=== PATIENT | male | born 1950 | race Caucasian/White ===

== ENCOUNTER 2024-02-15 14:07 | Outpatient (AMB) | payer MEDICARE, OTHER, SELFPAY ==
[2024-02-15 14:21] VITALS: BP 124/68; PULSE 68; BMI 33.2
--- NOTE | 2024-02-15 14:21 | MHC.OFFVIS ---
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 It appears that he has had these episodes going back more than 10 years. In the past, he was thought to be having rather vertigo. He apparently underwent workup and some therapy and it got better. More recently again he feels some new symptoms. Sometimes when he is getting up from seated position, he may feel unsteady. Not clear if it is orthostatic type change. However, he also feels the same randomly even when not changing positions. Otherwise symptoms like seeing double vision. Even in the exam room, he is stating that some letters on the trash can extra appear to be double. Hence at least some of these symptoms do not really appear to be truly cardiac -especially as his vital signs are normal at this time when he is describing these. Otherwise, no clear-cut symptoms like chest pains, jaw pain or any form of anginal-type symptoms. No shortness of breath either. Otherwise, no documented cardiac history. [facility] Family History (Updated 02/15/24 @ 14:30 by Noemi Horta) Father Heart attack Social History (Updated 02/15/24 @ 14:31 by Noemi Horta) Alcohol intake: never Patient Tobacco Use Status: Never used Tobacco Review of Systems Const Denies weakness Eyes Reports blurry vision ENT Reports dizziness Card Denies chest pain, Denies chest pain with activity, Denies syncope, Denies rapid heart rate, Denies pedal edema, Denies edema, Denies leg edema, Denies lightheadedness, Denies palpitations, Denies dyspnea, Denies dyspnea on exertion and Denies orthopnea Resp Denies cough, Denies dyspnea and Denies dyspnea on exertion GI Denies hematochezia and Denies change in stool character Musc Denies abnormal gait, Denies muscle cramps, Denies muscle weakness, Denies numbness, Denies radiating pain into limb and Denies tingling Neuro Denies abnormal gait, Reports dizziness, Denies syncope, Denies numbness, Denies tingling and Denies weakness Endo Denies palpitations Physical Exam Vital Signs: Last Vital Signs Pulse 68 02/15/24 14:21 BP 124/68 02/15/24 14:21 BMI result Body Mass Index 33.2 Const General: comfortable and no acute distress Orientation/consciousness: patient oriented x3 HEENT Other: Unremarkable Head: Yes normal to inspection Neck Neck: Yes normal visual inspection Chest Chest palpation & inspection: normal inspection of the chest Resp Auscultation: clear to auscultation bilaterally Cardio Palpation: normal PMI Heart sounds: S1 normal heart sound present, S2 normal heart sound present, no gallops, no murmurs and no rubs GI Palpation (GI): Soft to palpation Back/Spine/Pelvis Other: unremarkable Skin General skin exam: no rashes or lesions noted Neuro General: patient oriented x3 Extrem General: Yes normal to inspection Psych Mental Status: mental status grossly normal Office Procedures EKG Details: EKG with underlying sinus rhythm at 68/Min; sinus arrhythmias; no significant ST-T changes and otherwise unremarkable[place] [id number], Complete Assessment & Plan Assessment & Plan (1) Dizziness: Code(s): R42 - Dizziness and giddiness Category: Medical Plan Atypical symptoms and doubt any clear-cut cardiac cause. Especially symptoms like seeing double appear to be noncardiac. We will get a comprehensive cardiac workup either way including echocardiogram, carotid ultrasound and tilt-table testing. Highly doubt arrhythmogenic causes as he is having normal sinus rhythm today in clinic and still describing the same symptoms. Based on findings, will plan further care. Orders: Orders CA echo transthoracic complete Today R42 - Dizziness and giddiness US carotid duplex BI Today I65.23 - Occlusion and stenosis of bilateral carotid arteries, R42 - Dizziness and giddiness ECG Tilt Table Test Today R42 - Dizziness and giddiness, R55 - Syncope and collapse Coding Level of Care Code New Pt Level 4 (99621) Diagnoses Dizziness R42 CPT Codes EKG - CPT: 85559-[id number], Complete ([id number])
== END 2024-02-15 15:32 | disposition home or self-care (01) ==
PROVIDERS: PCP Internal Medicine; Visit Provider Internal Medicine
DX: R42 Dizziness and giddiness (principal)
CPT/HCPCS: 93010; 99204

== ENCOUNTER → 2024-02-15 14:07 | Outpatient (BNVA) | payer MEDICARE, OTHER, SELFPAY | PROVIDERS: PCP Internal Medicine; Visit Provider Internal Medicine | DX: R42 Dizziness and giddiness (principal) | CPT/HCPCS: 93005; 99202 ==

== ENCOUNTER 2024-02-24 13:17 | Outpatient (REF) | payer MEDICARE, OTHER, SELFPAY ==
--- NOTE | ~2024-02-24 | US_ITS ---
EXAMINATION: US EXTRACRANIAL CAROTID DUPLEX, BILATERAL CLINICAL INFORMATION: Carotid stenosis COMPARISON: None available. TECHNIQUE: Real-time ultrasound and Doppler techniques (integrating B-mode 2-D vascular images, Doppler spectral analysis and color-flow Doppler imaging) were utilized to interrogate the extracranial carotid arteries, the vertebral arteries and proximal subclavian arteries bilaterally. The degree of stenosis is determined by criteria similar to NASCET. FINDINGS: Right Side: 1. There is mild atherosclerotic plaque seen in the bifurcation/proximal ICA region. 2. The common carotid artery PSV proximally is 84.5 cm/s and distally 78.1 cm/s. 3. The proximal internal carotid artery velocities are 58.3 cm/s systolic and 18.5 cm/s diastolic. 4. The proximal external carotid artery PSV is 134 cm/s. 5. The vertebral artery shows antegrade flow. 6. The subclavian artery waveforms are normal. Left Side: 1. There is mild atherosclerotic plaque seen in the bifurcation/proximal ICA region. 2. The common carotid artery PSV proximally is 124 cm/s and distally 86 cm/s. 3. The proximal internal carotid artery velocities are 83.1 cm/s systolic and 23.1 cm/s diastolic. 4. The proximal external carotid artery PSV is 137 cm/s. 5. The vertebral artery shows antegrade flow. 6. The subclavian artery waveforms are normal. US/US carotid duplex BI IMPRESSION: 1. RIGHT: Minimal, non-hemodynamically significant stenosis of the proximal right internal carotid artery corresponding to a 0-49% stenosis by velocity criteria. 2. LEFT: Minimal, non-hemodynamically significant stenosis of the proximal left internal carotid artery corresponding to a 0-49% stenosis by velocity criteria. Electronically signed by: Jarvis Ren MD 02/28/2024 04:22 PM EDT
== END 2024-02-24 13:18 | disposition home or self-care (01) ==
LOC: HO.US 13:17
PROVIDERS: PCP Internal Medicine; Visit Provider Internal Medicine
DX: I65.23 Occlusion and stenosis of bilateral carotid arteries (principal); R42 Dizziness and giddiness
CPT/HCPCS: 93880

== ENCOUNTER → 2024-03-16 12:59 | Outpatient (REF) | payer MEDICARE, OTHER, SELFPAY ==
--- NOTE | 2024-03-16 13:03 | CA_ITS ---
Transthoracic Echocardiogram Patient (Last, First, Middle): Deacon Arevalo, Gender: Male Date of : 1950 Age: 73 Procedure Date: 03/16/2024 Procedure Type: Transthoracic Echocardiogram Location: OP Height: 172.72 cm Weight: 99.79 kg BSA: 2.13 m2 Heart Rate: bpm BP: 122 / 72 mmHg Quill Machine Operator: TO Referring MD: Benjy Deal MD Symptoms: R42 - Dizziness and giddiness Study Quality: Fair/Contrast Conclusions: - 1. Normal LV ejection fraction 55-60% with impaired relaxation filling pattern 2. Mild aortic and mitral regurgitation 3. Mildly dilated ascending aorta at 3.8 cm 4. No gross pericardial effusion Findings Procedure Information Contrast agent, definity, is being given per protocol without apparent complications. Left Ventricle Normal left ventricular size, thickness, and systolic function. The visually estimated ejection fraction is between 55-60%. Spectral Doppler is indicative of an impaired relaxation filling pattern. Right Ventricle Normal right ventricular cavity size. There is normal right ventricular systolic function. Atria The left atrium is likely dilated. Interatrial shunt cannot be excluded. The right atrium is normal in size. Aortic Valve Normal aortic valve structure and function. There is no aortic valve stenosis. There is mild aortic valve regurgitation. Mitral Valve There is mild anterior and moderate posterior mitral leaflet thickening. There is moderate mitral annular calcification. There is mild mitral valve regurgitation. There is no mitral valve stenosis. Pulmonic Valve The pulmonic valve is likely normal. There is trace to mild pulmonic valve regurgitation. Tricuspid Valve Likely normal tricuspid valve structure and function. Tricuspid regurgitation envelope is inadequate for calculation of right ventricular systolic pressure. Normal right atrial pressure. Great Vessels All visible segments of the aorta are normal in size. The pulmonary artery was not well visualized. There is mild dilatation of the ascending aorta measuring 3.80 cm. Venous The inferior vena cava is normal in size and collapses greater than 50% with inspiration. Pericardium/Pleural There is no evidence of pericardial effusion. Prior Study Comparison No prior study available for comparison. Measurements 2D Linear Measurements IVSd: 1.10 0.6-0.9/0.6-1.0 cm LVIDd: 5.41 3.9-5.3/4.2-5.9 cm LVIDd Index: 2.54 2.4-3.2/2.2-3.1 cm/m2 LVIDs: 3.66 2.0-3.6 cm LVPWd: 0.93 0.7-1.1 cm LA Diam: 4.00 2.7-3.8/3.0-4.0 cm LAIDs Index: 1.88 1.5-2.3 cm/m2 LV Mass: 263.11 67-162/88-224 g LV Mass Index: 123.53 43-95/49-115 g/m2 LVOT Diam: 2.50 3.0+(-)1.3 cm 2D Systolic Function EF 4C: 56.50 >55% EF 2C: 49.80 >55% EF BiP: 53.90 >55% Mitral Valve MV Pk E: 0.47 MV PK A: 0.53 MV Decel Time: 211.00 E/A: 0.90 E'Lateral: 7.18 E'Medial: 5.22 E/E' Med: 9.00 E/E' Lat: 6.60 PHT: 62.00 MVA PHT: 3.55 Decel [place]: 2.23 Aortic Valve AoV Pk Michael: 1.25 AoV Mn Michael: 0.83 AoV VTI: 0.22 AoV Pk Grad: 6.00 Aov Mn Grad: 3.00 KATIE Cont.VTI: 3.77 LVOT LVOT Pk Michael: 0.82 LVOT Mn Michael: 0.57 LVOT VTI: 0.17 LVOT Pk Grad: 3.00 LVOT Mn Grad: 1.00 LVOT Diam: 2.50 LVOT Area: 4.91 Diastolic Function MV Pk E: 0.47 MV Pk A: 0.53 E/A: 0.90 E'Medial: 5.22 E/E' Med: 9.00 E' Laterial: 7.18 E/E' Lat: 6.60 Right Ventricle TAPSE (mm): 28.50 TVS' Michael: 15.70 Tricuspid Valve RA Press: 3.00 Great Vessels Aorta Sinus of Valsalva: 3.95 2.0-3.[address] Ridge: 2.95 1.7-3.4 cm Ao Asc: 3.80 2.1-3.4 cm Updated in Other Vendor System with Status of Final John Floyd MD electronically signed on 03/17/2024 12:12:18 PM with status of Final
== END ==
LOC: HO.CARD 12:59
PROVIDERS: PCP Internal Medicine; Visit Provider Internal Medicine
DX: R42 Dizziness and giddiness (principal)
CPT/HCPCS: 93306; Q9957

== ENCOUNTER → 2024-03-16 13:03 | Outpatient (BNV) | payer MEDICARE, OTHER, SELFPAY | PROVIDERS: PCP Internal Medicine; Visit Provider Internal Medicine Cardiovascular Disease | DX: I35.1 Nonrheumatic aortic (valve) insufficiency (principal); I34.1 Nonrheumatic mitral (valve) prolapse | CPT/HCPCS: 93306 ==

== ENCOUNTER 2024-05-10 13:21 | Outpatient (AMB) | payer MEDICARE, OTHER, SELFPAY ==
[2024-05-10 13:25] VITALS: BP 128/68; PULSE 100; BMI 34.2
--- NOTE | 2024-05-10 13:25 | MHC.OFFVIS ---
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 Recently seen in consultation regarding dizziness. He has had these episodes going back more than 10 years. In the past, thought to be rather having vertigo. He apparently underwent workup and some therapy and it got better. More recently again he feels some new symptoms. Sometimes when he is getting up from seated position, he may feel unsteady. Not clear if it is orthostatic type change. However, he also feels the same randomly even when not changing positions. Otherwise symptoms like seeing double vision. Even in the exam room, he is stating that some letters on the trash can extra appear to be double. Hence at least some of these symptoms do not really appear to be truly cardiac -especially as his vital signs are normal at this time when he is describing these. Otherwise, no clear-cut symptoms like chest pains, jaw pain or any form of anginal-type symptoms. No shortness of breath either. Otherwise, no documented cardiac history. Since last seen, he states that the visual symptoms per se have gotten much better but the other symptoms are still persisting. Overall, he could be describing some orthostasis type dizziness. Still not very clear as lot of these symptoms are vague. He has completed an echocardiogram, carotid Dopplers as well as tilt-table testing. PFSH Family History Father Heart attack Social History Alcohol intake: never Patient Tobacco Use Status: Never used Tobacco Review of Systems Const Denies chills, Denies fatigue, Denies fever(s), Denies weight gain and Denies weight loss ENT Denies dizziness Card Denies chest pain, Denies leg edema, Denies lightheadedness, Denies palpitations, Reports dyspnea on exertion, Denies orthopnea and Denies other Resp Denies cough and Reports dyspnea on exertion GI Denies hematochezia and Denies change in stool character Musc Denies abnormal gait, Denies muscle weakness, Denies numbness, Denies radiating pain into limb and Denies tingling Neuro Denies abnormal gait, Denies dizziness, Denies numbness and Denies tingling Endo Denies fatigue and Denies palpitations Physical Exam Vital Signs: Last Vital Signs Pulse 100 05/10/24 13:25 BP 128/68 05/10/24 13:25 BMI result Body Mass Index 34.2 Const General: comfortable and no acute distress Orientation/consciousness: patient oriented x3 HEENT Other: Unremarkable Head: Yes normal to inspection Neck Neck: Yes normal visual inspection Chest Chest palpation & inspection: normal inspection of the chest Resp Auscultation: clear to auscultation bilaterally Cardio Palpation: normal PMI Heart sounds: S1 normal heart sound present, S2 normal heart sound present, no gallops, no murmurs and no rubs GI Palpation (GI): Soft to palpation Back/Spine/Pelvis Other: unremarkable Skin General skin exam: no rashes or lesions noted Neuro General: patient oriented x3 Extrem General: Yes normal to inspection Psych Mental Status: mental status grossly normal Assessment & Plan Assessment & Plan (1) Dizziness: Code(s): R42 - Dizziness and giddiness Category: Medical (2) PVC (premature ventricular contraction): Code(s): I49.3 - Ventricular premature depolarization Category: Medical Plan Cardiac studies reviewed. Echocardiogram with LVEF of 55-60%. Mild aortic/mitral regurgitation. Ascending aortic size top normal at 3.8 cm. Carotid Doppler shows minimal stenosis bilaterally. During the tilt-table test, there was no significant drop in blood pressure or change in pulse rate with 70 degree tilt. With nitroglycerin however, there was a drop in blood pressure and he had similar symptoms as he felt at home. Then got IV fluids and improved. Hence recommendation was possible dehydration. During the tilt-table test, there were frequent multifocal PVCs and some bigeminy/couplets. However, no symptoms from that. Overall, possible dehydration/orthostasis causing symptoms but not definitive. Increase fluid intake as above. Otherwise, precautions while getting up from seated position. With regard to the PVCs noted during tilt-table, highly doubt that playing a role and most likely benign as he has got normal LVEF. We can get a Holter monitor to assess the overall burden. Of note, while he was in normal sinus rhythm during the last office visit, he was still having the same symptoms. Hence that is not playing a role in his dizziness. Orders: Orders ECG 3 day holter monitor Today I49.3 - Ventricular premature depolarization Coding Level of Care Code Est Pt Level 3 (12956) Diagnoses Dizziness R42 PVC (premature ventricular contraction) I49.3
== END 2024-05-10 13:45 | disposition home or self-care (01) ==
PROVIDERS: PCP Internal Medicine; Visit Provider Internal Medicine
DX: R42 Dizziness and giddiness (principal); I49.3 Ventricular premature depolarization
CPT/HCPCS: 99213

== ENCOUNTER → 2024-05-10 13:21 | Outpatient (BNVA) | payer MEDICARE, OTHER, SELFPAY | PROVIDERS: PCP Internal Medicine; Visit Provider Internal Medicine | DX: I49.3 Ventricular premature depolarization (principal); R42 Dizziness and giddiness | CPT/HCPCS: 99212 ==

== ENCOUNTER → 2024-05-29 10:11 | Outpatient (REF) | payer MEDICARE, OTHER, SELFPAY | LOC: HO.CARD 10:11 | PROVIDERS: PCP Internal Medicine; Visit Provider Internal Medicine | DX: I49.3 Ventricular premature depolarization (principal) | CPT/HCPCS: 93242 ==

== ENCOUNTER → 2024-05-29 10:14 | Outpatient (BNV) | payer MEDICARE, OTHER, SELFPAY | PROVIDERS: PCP Internal Medicine; Visit Provider Internal Medicine | DX: I47.10 Supraventricular tachycardia, unspecified (principal); I49.3 Ventricular premature depolarization | CPT/HCPCS: 93244 ==

== ENCOUNTER → 2024-12-11 11:31 | Outpatient (REF) | payer MEDICARE, OTHER, SELFPAY ==
--- NOTE | 2024-12-11 11:34 | HM_ITS ---
Conclusion: 1. Patient was monitored for total period of 3 days 2. Baseline was normal sinus rhythm with average heart of 79 beats per minute 3. Frequent PVCs noted with total burden of 9% with 1 3 beat run of nonsustained VT at 154 beats per minute 4. Frequent PACs noted with total burden of 8.3% with 5 short runs of SVT, longest lasting 9 beats at 192 beats per minute 5. Patient marked the counter 1 time with correlation with normal sinus rhythm MTDD
--- OUTSIDE RECORDS SUMMARY | 2024-12-11 12:25 | XMS_ITS | Clinical Summary ---
Author Organization [facility] it Address [address] [place] [address] Care Team Providers Care Group Segment Consultant Name Role Phone Josemanuel Way MD Primary Care Provider [phone] Social History Tobacco Use Types Packs/Day Years Used Date Smoking Tobacco: Never Assessed Sex and Gender Information Value Date Recorded Sex Assigned at Not on file Legal Sex Male 11:25 PM EST Gender Identity Not on file Sexual Orientation Not on file Last Filed Vital Signs Vital Sign Reading Time Taken Comments Blood Pressure 130/75 12/20/2023 2:02 PM EDT Pulse 88 12/20/2023 2:02 PM EDT Temperature - - Respiratory Rate - - Oxygen Saturation - - Inhaled Oxygen Concentration - - Weight 100 kg (221 lb) 12/20/2023 2:02 PM EDT Height 175.3 cm (5' 9 ) 12/20/2023 2:02 PM EDT Body Mass Index 32.64 12/20/2023 2:02 PM EDT Plan of Treatment Health Maintenance Due Date Last Done Comments DTaP,Tdap,and Td Vaccines (1 - Tdap) 1969 Pneumococcal Vaccine: 50+ Years (1 of 1 - PCV) 09/29/1999 Zoster Vaccines (1 of 2) 09/29/1999 Abdominal Aortic Aneurysm (AAA) Screen 12/12/2023 Cholesterol Screening (Lipid Panel) 12/12/2023 Colorectal Cancer Screening: Colonoscopy 12/12/2023 Depression Screening 12/12/2023 Falls Risk Assessment 12/12/2023 Hepatitis C Screening 12/12/2023 Medicare Annual Wellness Visit 12/12/2023 03/16/2022 Social Influencers of Health Screening 12/12/2023 COVID-19 Vaccine (25 season) 2024 RSV Immunization Adult Patients (1 - 1-dose 75+ series) 2024 Influenza Vaccine (Season Ended) 2025 05/13/2021, 02/20/2020, 02/14/2019, Additional history exists HIB Vaccines Aged Out No longer eligi ble based on patient's age to complete this topic HPV Vaccines Aged Out No longer eligi ble based on patient's age to complete this topic Hepatitis A Vaccines Aged Out No long er eligible based on patient's age to complete this topic Hepatitis B Vaccines Aged Out No long er eligible based on patient's age to complete this topic IPV Vaccines Aged Out No longer eligi ble based on patient's age to complete this topic MMR Vaccines Aged Out No longer eligi ble based on patient's age to complete this topic Meningococcal ACWY Vaccine Aged Out N o longer eligible based on patient's age to complete this topic Meningococcal B Vaccine Aged Out No l onger eligible based on patient's age to complete this topic RSV Immunization Patients Under 20 months Aged Out No longer eligible based on patient's age to complete this topic Varicella Vaccines Aged Out No longer eligible based on patient's age to complete this topic Care Teams Group Segment Consultant Relationship Specialty Start Date End Date Josemanuel Way MD PCP - General Internal Medicine 05/22/16
== END ==
LOC: HO.CARD 11:31
PROVIDERS: PCP Internal Medicine; Visit Provider Internal Medicine
DX: I49.3 Ventricular premature depolarization (principal)
CPT/HCPCS: 93242

== ENCOUNTER → 2024-12-11 11:34 | Outpatient (BNV) | payer MEDICARE, OTHER, SELFPAY | PROVIDERS: PCP Internal Medicine; Visit Provider Internal Medicine Cardiovascular Disease | DX: I49.3 Ventricular premature depolarization (principal); I49.1 Atrial premature depolarization; I47.10 Supraventricular tachycardia, unspecified | CPT/HCPCS: 93244 ==

== ENCOUNTER 2025-01-02 09:47 | Outpatient (AMB) | payer MEDICARE, OTHER, SELFPAY ==
[2025-01-02 10:06] VITALS: BP 128/78; PULSE 73; BMI 32.4
--- NOTE | 2025-01-02 10:06 | A.OFFVIS_ITS ---
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 Today he reports he has been feeling generally well. He does have issues with dizziness at times. He says the symptoms come and go and he has seen neurologist for this problem. He has no chest discomfort brought on by physical activity. He has no shortness of breath, PND, orthopnea or edema. No heart palpitations, presyncope, syncope, falls. Compliant with medications. [facility] Family History Father Heart attack Social History Alcohol intake: never Patient Tobacco Use Status: Never used Tobacco Review of Systems Const All systems reviewed & are unremarkable except as noted in HPI and below ENT Reports dizziness (with bending and turning head) Card Denies chest pain, Denies chest pain at rest, Denies chest pain with activity, Denies rapid heart rate, Denies pedal edema, Denies edema, Denies leg edema, Denies lightheadedness, Denies palpitations, Denies dyspnea, Denies dyspnea on exertion and Denies orthopnea Resp Denies cough, Denies dyspnea and Denies dyspnea on exertion GI Denies hematochezia and Denies change in stool character Musc Denies abnormal gait, Denies limited range of motion, Denies muscle cramps, Denies muscle weakness, Denies numbness, Denies radiating pain into limb, Denies stiffness and Denies tingling Neuro Denies abnormal gait, Reports dizziness (with bending and turning head), Denies numbness and Denies tingling Endo Denies palpitations Physical Exam Vital Signs: Last Vital Signs Pulse 73 01/02/25 10:06 BP 128/78 01/02/25 10:06 BMI result Body Mass Index 32.4 Const General: cooperative, healthy appearing, comfortable and no acute distress Orientation/consciousness: patient oriented x3 Neck Neck: Yes normal visual inspection Resp Effort & Inspection: normal respiratory effort Auscultation: clear to auscultation bilaterally, no crackles, no rales, no rhonchi and no wheezes Cardio Rate: regular rate Rhythm: regular rhythm Heart sounds: S1 normal heart sound present, S2 normal heart sound present, no gallops, no murmurs and no rubs Neuro General: patient oriented x3 Extrem General: Yes normal to inspection and No no pedal edema Psych Appearance: grossly normal Mental Status: mental status grossly normal Speech and movement: Normal speech and movement present Assessment & Plan Assessment & Plan (1) Frequent PVCs: Code(s): I49.3 - Ventricular premature depolarization Category: Medical Plan: For his symptom of dizziness he underwent a Holter monitor 05/29/2024 which did show sinus rhythm with frequent ventricular ectopy, 4%. This finding does not contribute to his symptom. An echocardiogram done 03/16/2024 showed EF 55-60%, mild aortic regurgitation and mild mitral regurgitation. A repeat Holter monitor done 12/11/2024 shows sinus rhythm with average heart rate 79 beats per minute, ventricular ectopy 9%, supraventricular ectopy 8.3%. He denies any hear t palpitations. Pulse regular on examination. Findings of frequent ectopy reviewed with him. Will check exercise nuclear stress test to evaluate for any ischemia. Discussed reduction in caffeinated beverages. He has no concern for sleep apnea. Will start on metoprolol XL 25 mg daily. Cardiology follow-up 3 months, sooner if needed. (2) PAC (premature atrial contraction): Code(s): I49.1 - Atrial premature depolarization Category: Medical Plan: As above (3) Dizziness: Code(s): R42 - Dizziness and giddiness Category: Medical Plan: Reports of dizziness. Has seen Neurology and was told he has vertigo. Plan Time spent on chart review, documentation, interview and assessment Orders: Orders CA stress test Today I49.1 - Atrial premature depolarization, I49.3 - Ventricular premature depolarization, R42 - Dizziness and giddiness NM cardiolite stress test Today I49.1 - Atrial premature depolarization, I49.3 - Ventricular premature depolarization, R42 - Dizziness and giddiness Medications: New metoprolol succinate ER 25 mg PO DAILY 30 tabs 5RF Coding Level of Care Code Est Pt Level 4 (95259) Complex EM visit Add On G2211 Diagnoses Frequent PVCs I49.3 PAC (premature atrial contraction) I49.1 Dizziness R42 Time Spent (min) 32
--- OUTSIDE RECORDS SUMMARY | 2025-01-02 10:33 | XMS_ITS ---
Author Name [facility] Organization Unknown Encounters Encounter Type Encounter Reason Primary Diagnosis Location Date Ambulatory [facility] 04/11/2024 Care Team Organization Name Specialty Phone Email Start Date End Da te [facility] 2024
--- OUTSIDE RECORDS SUMMARY | 2025-01-02 10:33 | XMS_ITS | Clinical Summary ---
Author Organization [facility] it Address [address] [place] [address] Care Team Providers Care Fruit Shipper Name Role Phone Josemanuel Way MD Primary Care Provider [phone] Social History Tobacco Use Types Packs/Day Years [...] Panel) 12/12/2023 Colorectal Cancer Screening: Colonoscopy 12/12/2023 Falls Risk Assessment 12/12/2023 Hepatitis C Screening 12/12/2023 Medicare Annual Wellness Visit 12/12/2023 03/16/2022 Social Influencers of Health Screening 12/12/2023 COVID-19 Vaccine (2023-25 season) 2024 Depression Screening 06/14/2024 RSV Immunization Adult Patients (1 - 1-dose 75+ series) 2024 Influenza Vaccine (#1) 2025 1, 02/20/2020, 02/14/2019, Additional history exists HIB Vaccines [...] age to complete this topic Care Teams Fruit Shipper Relationship Specialty Start Date End Date Josemanuel Way MD PCP - General Internal Medicine 05/22/16
--- OUTSIDE RECORDS SUMMARY | 2025-01-02 10:33 | XMS_ITS | Patient Health Record ---
Author Organization [facility] [address] Address [address] [place] [address] Care Team Providers Care Global Human Resources Director Name Role Phone KATRIN WAY Primary Care Provider [phone] DANIEL TREVINO Unavailable [phone] ZANDRA SLOANE Unavailable [phone] Allergies No Known Allergies Results Component Value Reference Range Notes Comp. Metabolic Panel (14)-3 Reviewed date:10/18/2024 10:08:37 AM Interpretation: Performing Lab:Rudder Sinan, [facility], Phone - [phone], Director - [place] Notes/Report: Glucose 115 70-99 mg/dL BUN 12 8-27 mg/dL Creatinine 0.74 0.76-1.27 mg/dL eGFR 94 >59 mL/min/1.73 BUN/Creatinine Ratio 16 10-24 Sodium 144 134-144 mmol/L Potassium 4.7 3.5-5.2 mmol/L Chloride 105 96-106 mmol/L Carbon Dioxide, Total 18 20-29 mmol/L Calcium 9.4 8.6-10.2 mg/dL Protein, Total 6.6 6.0-8.5 g/dL Albumin 4.4 3.8-4.8 g/dL Globulin, Total 2.2 1.5-4.5 g/dL Bilirubin, Total 0.6 0.0-1.2 mg/dL Alkaline Phosphatase 71 44-121 IU/L AST (SGOT) 25 0-40 IU/L ALT (SGPT) 18 0-44 IU/L Lipid Panel-[id number] Reviewed date:10/18/2024 10:05:27 AM Interpretation: Performing Lab:Rudder Sinan, [facility], Phone - [phone], Director - [place] Notes/Report: Cholesterol, Total 209 100-199 mg/dL Triglycerides 239 0-149 mg/dL HDL Cholesterol 45 >39 mg/dL VLDL Cholesterol Yusef 42 5-40 mg/dL LDL Chol Calc ([facility]) 122 0-99 mg/dL CBC With Differential/Platel et-[id number] Reviewed date:10/18/2024 02:08:32 PM Interpretation: Performing Lab:[facility] [place], [address] [facility], [place], Phone - [phone], Director - [place] Notes/Report: WBC 5.9 3.4-10.8 x10E3/uL RBC 4.90 4.14-5.80 x10E6/uL Hemoglobin 15.4 13.0-17.7 g/dL Hematocrit 45.7 37.5-51.0 % MCV 93 79-97 fL MCH 31.4 26.6-33.0 pg MCHC 33.7 31.5-35.7 g/dL RDW 13.1 11.6-15.4 % Platelets 292 150-450 x10E3/uL Neutrophils 68 Not Estab. % Lymphs 25 Not Estab. % Monocytes 5 Not Estab. % Eos 1 Not Estab. % Basos 1 Not Estab. % Neutrophils (Absolute) 4.0 1.4-7.0 x10E3/uL Lymphs (Absolute) 1.5 0.7-3.1 x10E3/uL Monocytes(Absolute) 0.3 0.1-0.9 x10E3/uL Eos (Absolute) 0.1 0.0-0.4 x10E3/uL Baso (Absolute) 0.1 0.0-0.2 x10E3/uL Immature Granulocytes 0 Not Estab. % Immature Grans (Abs) 0.0 0.0-0.1 x10E3/uL Reason For Referral Reason Near syncope with Dr Elodia Wallis Diagnosis 1 Near syncope (R55) Referral Organization [facility] [address] Referring Provider First Name KATRIN Referring Provider Last Name CRYSTAL Referring Provider Speciality Internal M edicine Referred Provider Specialty Cardiology General Notes [facility], [address] [facility], [address], P [phone], , F Clinical Notes Maranda Byrd 2023 02:51:57 PM >Referral info including notes, labs, and EKG sent to [place] [facility]. Paper copy mailed to pt for record and FU. TY.Andreas Redena 02/02/2024 09:51:49 AM > I called the office, and they informed me that they called the patient yesterday but have not received a callback. They will attempt to reach him again Referral Priority Routine Reason [facility] - Dr. Kaushik Mayorga Diagnosis 1 Near syncope (R55) Referral Organization [facility] [address] Referring Provider First Name KATRIN Referring Provider Last Name CRYSTAL Referring Provider Speciality Internal M edicine Referred Provider Specialty Cardiology Clinical Notes Chloe Julian 024 09:41:52 AM > referral sent with clinicals to (F) [phone] (P) [phone], Shanna Johns 03/03/2024 08:42:54 AM > The patient was seen on 02/15/2024 Referral Priority Routine Medications Medication SIG (Take, Route, Frequency, Duration) Notes Start Date End Date Status Rosuvastatin Calcium 20 MG TAKE 1 TABLET BY MOUTH EVERY DAY; Duration: 90 Active Sertraline HCl 50 MG TAKE 1 TABLET BY MO UTH EVERY DAY; Duration: 90 Active Pantoprazole Sodium 40 MG TAKE 1 TABLET BY MOUTH EVERY DAY; Duration: 90 Active Zetia 10 MG 1 tablet Orally Once a day; Duration: 30 days 10/24/2024 Active Multi For Him - Orally Acti ve Immunizations Vaccine Route Administration Date Status Comme nts Flu vaccine no Preserv 3 and > IM Intramuscular 04/06/2018 Administered Flu vaccine no Preserv 3 and > IM Intramuscular 03/22/2024 Administered influenza IM Intramuscular 05/13/2021 Administered Influenza, high dose seasonal IM Intramuscular 02/14/[address] [facility] [address] Social History Tobacco Use: Social History Observation Description Date Details (start date - stop date) Never Smoker NA - NA Tobacco Use/Smoking Question Answer Notes Are you a nonsmoker Problems Problem Type SNOMED Code ICD Code Onset Dates Problem Status W/U Status Risk Notes Problem Obesity (928373785) Other obesit y (E66.8) Active confirmed Problem Mixed hyperlipidemia (558685792) Mixed hyperlipidemia (E78.2) Active confirmed Problem Hyperlipidemia (90918598) Hyperlipidemia, unspecified (E78.5) Active confirmed Problem Essential hypertension (71220449) Essential (primary) hypertension (I10) Active confirmed Problem Gastro-esophageal reflux disease with esophagitis (300186690) Gastro-esophageal reflux disease with esophagitis (K21.0) Active confirmed Problem Impaired fasting glucose (871768785) Impaired fasting glucose (R73.01) Active confirmed Problem Nonvenomous insect bite of trunk without infection (25805951) Insect bite (nonvenomous) of abdominal wall, initial encounter (S30.861A) Active confirmed Problem Body mass index 30.00 to 34.99 (765732650902400) Body mass index (BMI) 31.0-31.9, adult (Z68.31) Active confirmed Problem Essential hypertension (43532056) Essential hypertension (I10) Active confirmed Problem Colon cancer screening (676003185) Colon cancer screening (Z12.11) Active confirmed Problem Pain of left knee region (finding) (673819290765095) Left knee pain, unspecified chronicity (M25.562) Active confirmed Problem Hyperlipidaemia (24432567) Hyperlipidemia, unspecified hyperlipidemia type (E78.5) Active confirmed Problem Anxiety (57704431) Anxiety (F41.9) Active confi rmed Problem Adult health examination (832982783) Adult general medical exam (Z00.00) Active confirmed Problem Dizziness (693727881) Dizziness (R42) Active confirmed Problem Fatigue (80902372) Fatigue, unspecified type (R53.83) Active confirmed Problem Rash (452701650) Rash (R21) Active confirmed Problem Annual health maintenance examination (62521371) Annual physical exam (Z00.00) Active confirmed Problem Gastroesophageal reflux disease without esophagitis (853009506) Gastroesophageal reflux disease without esophagitis (K21.9) Active confirmed Problem Obesity (907561945) Obesity (BMI 30-39.9) (E66.9) Active confirmed Problem Gastroesophageal reflux disease with esophagitis (disorder) (355232402) Gastroesophageal reflux disease with esophagitis, unspecified whether hemorrhage (K21.00) Active confirmed Problem Tick bite, unspecified site, initial encounter (W57.XXXA) Active confirmed Problem Frequent headache (finding) (016768281) Frequent headaches (R51.9) Active confirmed Problem Double vision (68920169) Double vision (H53.2) Active confirmed Problem Gastroesophageal reflux disease (098152919) GERD (gastroesophageal reflux disease) (K21.9) Active confirmed Problem Hyperlipidemia (51985346) Hyperlipidemia (E78.5) Active confirmed Vital Signs Heart Rate 74 /min 10/24/2024 Oximetry 99 % 10/24/2024 Blood pressure diastolic 76 mm Hg 10/24/2024 Height 68 in 10/24/2024 Blood pressure systolic 122 mm Hg 10/24/2024 Weight 222 lbs 10/24/2024 BMI 33.75 kg/m2 10/24/2024 Encounters Encounter Location Date Provider Diagnosis [facility] [address] [place] [address] 03/31/[address] Impacted cerumen of both ears H61.23 [facility] [address] [address] 04/27/2024 SLOANE DE PAZ [facility] [address] [address] 02/08/[address] Hyperlipidemia, unspecified E78.5 ; Dizziness R42 ; Anxiety F41.9 and Double vision H53.[address] [facility] [address] [place] [address] 03/22/[address] Essential hypertensi on I10 ; Anxiety F41.9 ; GERD (gastroesophageal reflux disease) K21.9 ; Hyperlipidemia E78.5 ; Encounter for immunization Z23 ; Dizziness R42 and Cerumen debris on tympanic membrane of both ears H61.23 [facility] [address] [address] 04/13/2024 SLOANE DE PAZ Labile hypertension R09.89 ; Hyperlipidemia E78.5 ; GERD (gastroesophageal reflux disease) K21.9 ; Obesity (BMI 30-39.9) E66.9 and Anxiety F41.[address] [facility] [address] [place] [address] 05/03/2024 DANIEL TREVINO SARS-CoV-2 positive U07.[address] [facility] [address] [place] [address] 06/26/[address] Annual physical exam Z00.00 ; Hyperlipidemia, unspecified hyperlipidemia type E78.5 and Essential (primary) hypertension I10 [facility] [address] [place] [address] 10/24/2024 DANIEL TREVINO Mixed hyperlipidemia E78.2 ; Grief reaction F43.20 ; Gastroesophageal reflux disease without esophagitis K21.9 ; Elevated glucose R73.09 ; Obesity (BMI 30-39.9) E66.9 ; Essential hypertension I10 ; Dizziness R42 and Encounter for examination of blood pressure without abnormal findings Z01.30 [facility] [address] [place] [address] 01/03/2024 TALFERNANDA PANDEYAN [facility] [address] [place] [address] 01/26/[address] [facility] [address] [place] [address] 04/12/[address] [facility] [address] [place] [address] 05/03/[address] [facility] [address] [place] [address] 05/03/2024 SLOANE BIRKS [facility] [address] [place] [address] 05/15/2024 SLOANE BIRKS [facility] [address] [place] [address] 06/08/2024 SLOANE BIRKS [facility] [address] [place] [address] 12/19/2024 DANIEL TREVINO Assessments Encounter Date Diagnosis (ICD Code) Assessment Notes Treatment Notes Treatment Clinical Notes Section Notes 02/08/2024 Hyperlipidemia, unspecified (ICD-10 - E78.5) #Dizziness: DDx at this time includes valvular dysfunction, CHF, cardiac arrhythmias, anxiety and MS. Referral to [facility] is being made in attempt to have an echocardiogram performed as soon as possible to evaluate cardiac causes. He denies any feelings of anxiety since starting Sertraline. He states he feels calm, has been sleeping throughout the entire night and denies palpitations. MRI obtained did not find any evidence of MS. #Anxiety: Continue Sertraline HCl 50mg daily #Hyperilipidemia: Continue Rosuvastatin 20mg daily #GERD: Continue Pantoprazole 40mg daily. Avoid spicy or hot foods, maintain upright position after eating. 03/22/2024 Essential hypertension (ICD-10 - I10) #HLD Taking rosuvastatin with no issues. Continue current regimen. #GERD Taking pantoprazole with no issues. Continue current regimen. #Anxiety Taking sertraline with no issues. Continue current regimen. #HTN Patients BP has been elevated in previous visits as well as today at 152/86. Discussed with patient the potential of placing him on a low-dose antihypertensive. Patient educated on monitoring BP at home with RPM. #Dizziness All work-up has been negative so far. Discovered bilateral cerumen impaction today, which could be causing symptoms. Patient educated on use of OTC wax remover drops to soften cerumen and prepare for ear irrigation next week. Patient received flu shot today in office. Patient is set to follow-up for ear irrigation next week, and in 3 months for a MWV. 02/08/2024 Dizziness (ICD-10 - R42) #Dizziness: DDx at this time includes valvular dysfunction, CHF, cardiac arrhythmias, anxiety and MS. Referral to [facility] is being made in attempt to have an echocardiogram performed as soon as possible to evaluate cardiac causes. He denies any feelings of anxiety since starting Sertraline. He states he feels calm, has been sleeping throughout the entire night and denies palpitations. MRI obtained did not find any evidence of MS. #Anxiety: Continue Sertraline HCl 50mg daily #Hyperilipidemia: Continue Rosuvastatin 20mg daily #GERD: Continue Pantoprazole 40mg daily. Avoid spicy or hot foods, maintain upright position after eating. 03/31/2024 Impacted cerumen of both ears (ICD-10 - H61.23) 04/13/2024 Labile hypertension (ICD-10 - R09.89) Ashley is a 73-year-old male history of hyperlipidemia, GERD, and depression who presents the office today for urgent visit for high blood pressure. He reports labile blood pressures over the past several weeks with readings as high as 169/95 and as low as 125/77 recorded on Qardio device. He admits to increased stress in his life at this time as his Nicole is on hospice care and he is managing her care along with home nursing services. Reports he has never had blood pressure before. He is without shortness of breath, chest pain, dyspnea exertion, abdominal pain, nausea, vomiting, diarrhea, or weakness. Of note recently seen by [facility] on 02/15/2024 for symptoms of dizziness and unsteadiness at which time noncardiac etiology of symptoms were determined. Carotid ultrasound performed which showed right and left minimal nonhemodynamically significant stenosis of the proximal right and left internal carotid artery corresponding to 0 to 49% stenosis by velocity criteria. Patient states also underwent tilt table testing and echocardiogram, have requested reports. On physical exam today patient is well-appearing in no acute distress. Vital signs are stable with blood pressure 128/80 and repeated blood pressure at the end of visit 122/82. Heart rate 92, oxygen saturation 92% on room air. Regular rate and rhythm appreciated without murmurs, rubs, or gallops. 2+ and equal radial pulses appreciated bilaterally. Lungs are clear to auscultation bilaterally without stridor, wheezing, rhonchi, or rales. At this time given clinical presentation patient most likely has labile high blood pressure most likely secondary to increased stress. Educated to continue to use blood pressure monitoring device regularly at home. Educated to rest his arm on a flat surface while his arm at heart level while monitoring blood pressure and to have legs uncrossed during reading. Also discussed the importance of continuing to lean on support systems during this time of increased stress including his vmifqd-hv-ora who is staying at the house to help with care and his son. He reports several family members and friends would come by the house to bring meals and assisting care. Advised to continue to monitor for symptoms consistent with red flag signs of hypertension including but not limited to chest pain, shortness of breath, dyspnea exertion, diaphoresis, palpitations, abdominal pain, vomiting, or weakness. Educated that he develops any of the symptoms to go to the emergency department. Patient will follow-up via telehealth visit in 2 weeks on 04/27/2024 to reevaluate blood pressure and symptoms. Patient is understanding and agrees with plan. All patient questions answered at this time. # Anxiety: Patient reports mood is okay [...] He demonstrates understanding. Will continue to monitor. All questions have been answered to patient's satisfaction. Patient verbalized understanding of diagnosis and treatments explained. Advised to call sooner prior to next visit it any questions/concerns arise. Case discussed with collaborating physician Dg Way who reviewed the assessment and plan. Chart, medications, labs, vital signs reviewed. Dictation was accomplished with the use of [employer] voice recognition software, which is prone to medical misidentifications and grammatical errors. This are unintentional and the practitioner does try to identify and correct these, but some could still be present. Please do not hesitate to contact practitioner for clarification. 04/13/2024 Hyperlipidemia (ICD-10 - E78.5) Ashley is a 73-year-old male history of hyperlipidemia, GERD, and depression who presents the office today for urgent visit for high blood pressure. He reports labile blood pressures over the past several weeks with readings as high as 169/95 and as low as 125/77 recorded on Qardio device. He admits to increased stress in his life at this time as his Nicole is on hospice care and he is managing her care along with home nursing services. Reports he has never had blood pressure before. He is without shortness of breath, chest pain, dyspnea exertion, abdominal pain, nausea, vomiting, diarrhea, or weakness. Of note recently seen by [facility] on 02/15/2024 for symptoms of dizziness and unsteadiness at which time noncardiac etiology of symptoms were determined. Carotid ultrasound performed which showed right and left minimal nonhemodynamically significant stenosis of the proximal right and left internal carotid artery corresponding to 0 to 49% stenosis by velocity criteria. Patient states also underwent tilt table testing and echocardiogram, have requested reports. On physical exam today patient is well-appearing in no acute distress. Vital signs are stable with blood pressure 128/80 and repeated blood pressure at the end of visit 122/82. Heart rate 92, oxygen saturation 92% on room air. Regular rate and rhythm appreciated without murmurs, rubs, or gallops. 2+ and equal radial pulses appreciated bilaterally. Lungs are clear to auscultation bilaterally without stridor, wheezing, rhonchi, or rales. At this time given clinical presentation patient most likely has labile high blood pressure most likely secondary to increased stress. Educated to continue to use blood pressure monitoring device regularly at home. Educated to rest his arm on a flat surface while his arm at heart level while monitoring blood pressure and to have legs uncrossed during reading. Also discussed the importance of continuing to lean on support systems during this time of increased stress including his duevxt-ru-ewt who is staying at the house to help with care and his son. He reports several family members and friends would come by the house to bring meals and assisting care. Advised to continue to monitor for symptoms consistent with red flag signs of hypertension including but not limited to chest pain, shortness of breath, dyspnea exertion, diaphoresis, palpitations, abdominal pain, vomiting, or weakness. Educated that he develops any of the symptoms to go to the emergency department. Patient will follow-up via telehealth visit in 2 weeks on 04/27/2024 to reevaluate blood pressure and symptoms. Patient is understanding and agrees with plan. All patient questions answered at this time. # Anxiety: Patient reports mood is okay [...] He demonstrates understanding. Will continue to monitor. All questions have been answered to patient's satisfaction. Patient verbalized understanding of diagnosis and treatments explained. Advised to call sooner prior to next visit it any questions/concerns arise. Case discussed with collaborating physician Dg Way who reviewed the assessment and plan. Chart, medications, labs, vital signs reviewed. Dictation was accomplished with the use of [employer] voice recognition software, which is prone to medical misidentifications and grammatical errors. This are unintentional and the practitioner does try to identify and correct these, but some could still be present. Please do not hesitate to contact practitioner for clarification. 05/03/2024 SARS-CoV-2 positive (ICD-10 - U07.1) Ashley is a 73-year-old male present via telehealth for urgent visit. #COVID-positive: Symptoms began overnight. Developed rhinorrhea, sore throat, sneezing and a dry cough. Denies fever, chills, body aches, shortness of breath or trouble breathing. Has tried mopd-poc-pbhtguk NyQuil which has improved symptoms slightly. Patient reports adequate appetite and hydrating well. Patient reports known sick contacts in family. Patient able to isolate at home for the next few days. Discussed that he does not need to retest and can stop isolation once symptoms improve. Plan to send Paxlovid to the pharmacy with instructions to take twice daily for 5 days. Also plan to send benzonatate 200 mg to be taken up to 3 times as needed for cough. Recommended supportive care including rest, hydration, well-balanced diet in addition to using Tylenol NyQuil as needed. Discussed side effects including GI upset. All questions answered. Discussed emergency protocol. Discussed calling the office if symptoms worsen or do not improve. Will consider chest xray if needed. Patient is seen today via telehealth agreement, with consent of patient. I used the following telehealth technology (telephone/[employer]/ skype) during this visit This encounter is appropriate and reasonable under the circumstances given the patient's particular presentation. The patient has been advised of the potential risks and limitations of this mode of treatment Including but not limited to the absence of in person physical examination,and has agreed to be treated in a remote fashion in spite of this. Any and all patient questions have been answered. The patient also has been advised to contact this office for worsening conditions or problems and seek medical treatment and/or call 911 if the patient deems either necessary All questions answered to patients satisfaction. Patient verbalized understanding of diagnosis and treatments explained. To call sooner prior to next visit it any questions/concerns arise. Case discussed with collaborating physician Dr. Way who reviewed the assessment and plan. Chart, medications, labs, vital signs reviewed. Dictation was accomplished with the use of [employer] voice recognition software, prone to medical misidentifications and grammatical errors. This is unintentional and the practitioner does try to identify and correct these, but some could still be present. Please do not hesitate to contact practitioner for clarification. 06/26/2024 Annual physical exam (ICD-10 - Z00.00) Patient seen and examined. Comprehensive discussion was done on the following. 1. Nutrition: It is important to follow a healthy diet based on lots of vegetables and legumes and good fat. Avoid processed food and processed carbohydrates. Learn to prepare your own meals. Learn to read labels and avoid high fructose corn syrup, processed chemicals added to increase shelf life and preprepared meals. Avoid fast foods. Learn to eat slowly and plan meals for a week. Try to count calories and be mindful off daily calorie intake. Get into the habit of keeping an eye on your weight by using an appropriate scale. Learn to log exercise and discussed fitness Apps like [employer] which can help keep log off calories taken versus calories burned. Local food should be preferred. Discussed Dirty Dozen Versus Clean Fifteen. Discussed healthy supplements like fish oil, Tumeric, Curcumin, Melatonin, Resveratrol, Probiotics, Vitamin-D, Alpha-Lipoic acid, Vitamin-D and coconut oil. 2. It is important to exercise regularly. Is a good habit to walk at least 30-45 minutes a day. Gentle weightlifting with standard precautions to protect the back. Finding activity like cycling or hiking and get into the habit of engaging in it. Stretching before and after the exercises important. It is also important to contact me if there are any problems like shortness of breath, chest pain, back pain and joint or muscle pain associated with the exercise. 3. Discussed age appropriate screening guidelines. Colonoscopy needs to start at age 50 with stool for occult blood as appropriate. There is a new test that can test for genetic abnormalities in the stool sample. This would not replace a colonoscopy but could be used as a screening tool for patients who do not want a colonoscopy. We discussed the importance of early detection of colon cancer. 4. Discussed current PSA screening. PSA screening can be done in most patients between age 50 and 65. However early detection of prostate cancer needs to carefully be balanced with complications with treatment. These include incontinence, impotence etc. Each patient should decide if they would like to have this test. 5. Discussed safe driving and no use of smart phone while driving 6. Age-appropriate immunizations were discussed. A tetanus booster is needed every 10 years. Flu vaccine is recommended every year just before the start of the flu season. Shingles vaccine is recommended after age 50 but not all insurances cover it. Pneumonia vaccine is given after age 65 unless there are certain comorbidities for which it is started earlier. 7. Diagnostic labs were discussed. These could include CBC CMP and lipids with fasting blood glucose and insulin levels. Vitamin D and hemoglobin A1c testing might be appropriate. 8. Mini-Mental exam is 30 out of 30 patient does not consume alcohol at all recommended messages order for life-sustaining treatment and healthcare proxy discussed bereavement as his has and offered support. He regularly walks with his dog in [place] in [place]. Continue to be a resource as needed and continue to be active. Episodes of dizziness are still there but has had a complete cardiac workup. Take fall precautions and follow-up advised along with hydration 10/24/2024 Mixed hyperlipidemia (ICD-10 - E78.2) Ashley is a pleasant 74-year-old male present today for follow-up. #Grief: Patient unfortunately lost his approximately 5 months ago after being on hospice x 4 months. 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 Overall doing fairly well, sleeping well at night and has resumed sleeping in his bed since his passed. Manage on sertraline 50 mg p.o. once daily. States this dose is doing well and he is not interested in increasing the dose. Denies depression, SI/HI. Will continue to monitor. #Esophageal reflux: Managed on pantoprazole 40 mg p.o. once daily. Denies any heartburn symptoms at this time. #Hyperlipidemia: Elevated total cholesterol of 209, triglycerides 239 and LDL 122. Currently on rosuvastatin 20 mg p.o. once daily. Will add Zetia 10 mg p.o. once daily. Plan to follow-up in 4 months and repeat lipids. # Glucose of 115. Will add A1c to upcoming blood work. #Elevated BMI: Wt: 222 lbs, BMI: 33.75 patient working on lifestyle modifications for intentional weight loss. States his goal is under 200 pounds. Patient walks his dog 2-3 times a day at [place]. States he has been limiting processed food and sugar in his diet. Encouraged to continue efforts. Plan to continue to monitor. #Hypertension: Blood pressure stable in office. Will continue to monitor. #Dizzy spells: Previous brain MRI of 01/02/2024 revealed no acute intracranial findings. Very mild chronic microvascular ischemic changes.Patient referred to cardiology with unremarkable workup 05/2024. States at times he feels unsteady when standing from a seated position. Denies chest pain, shortness of breath, palpitations, vision changes or headaches. Echocardiogram and carotid Dopplers as well as tilt table test unremarkable. Recommend increase water consumption to avoid dehydration. Will consider neurology follow-up if symptoms worsen. # Plan to follow-up in 4 months and repeat labs. All questions answered to patients satisfaction. Patient verbalized understanding of diagnosis and treatments explained. To call sooner prior to next visit it any questions/concerns arise. Case discussed with collaborating physician Dr. Way who reviewed the assessment and plan. Chart, medications, labs, vital signs reviewed. Dictation was accomplished with the use of [employer] voice recognition software, prone to medical misidentifications and grammatical errors. This is unintentional and the practitioner does try to identify and correct these, but some could still be present. Please do not hesitate to contact practitioner for clarification. 10/24/2024 Grief reaction (ICD-10 - F43.20) Ashley is a pleasant 74-year-old male present today for follow-up. #Grief: Patient unfortunately lost his approximately 5 months ago after being on hospice x 4 months. 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 Overall doing fairly well, sleeping well at night and has resumed sleeping in his bed since his passed. Manage on sertraline 50 mg p.o. once daily. States this dose is doing well and he is not interested in increasing the dose. Denies depression, SI/HI. Will continue to monitor. #Esophageal reflux: Managed on pantoprazole 40 mg p.o. once daily. Denies any heartburn symptoms at this time. #Hyperlipidemia: Elevated total cholesterol of 209, triglycerides 239 and LDL 122. Currently on rosuvastatin 20 mg p.o. once daily. Will add Zetia 10 mg p.o. once daily. Plan to follow-up in 4 months and repeat lipids. # Glucose of 115. Will add A1c to upcoming blood work. #Elevated BMI: Wt: 222 lbs, BMI: 33.75 patient working on lifestyle modifications for intentional weight loss. States his goal is under 200 pounds. Patient walks his dog 2-3 times a day at [place]. States he has been limiting processed food and sugar in his diet. Encouraged to continue efforts. Plan to continue to monitor. #Hypertension: Blood pressure stable in office. Will continue to monitor. #Dizzy spells: Previous brain MRI of 01/02/2024 revealed no acute intracranial findings. Very mild chronic microvascular ischemic changes.Patient referred to cardiology with unremarkable workup 05/2024. States at times he feels unsteady when standing from a seated position. Denies chest pain, shortness of breath, palpitations, vision changes or headaches. Echocardiogram and carotid Dopplers as well as tilt table test unremarkable. Recommend increase water consumption to avoid dehydration. Will consider neurology follow-up if symptoms worsen. # Plan to follow-up in 4 months and repeat labs. All questions answered to patients satisfaction. Patient verbalized understanding of diagnosis and treatments explained. To call sooner prior to next visit it any questions/concerns arise. Case discussed with collaborating physician Dr. Way who reviewed the assessment and plan. Chart, medications, labs, vital signs reviewed. Dictation was accomplished with the use of [employer] voice recognition software, prone to medical misidentifications and grammatical errors. This is unintentional and the practitioner does try to identify and correct these, but some could still be present. Please do not hesitate to contact practitioner for clarification. 10/24/2024 Gastroesophageal reflux disease without esophagitis (ICD-10 - K21.9) Ashley is a pleasant 74-year-old male present today for follow-up. #Grief: Patient unfortunately lost his approximately 5 months ago after being on hospice x 4 months. 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 Overall doing fairly well, sleeping well at night and has resumed sleeping in his bed since his passed. Manage on sertraline 50 mg p.o. once daily. States this dose is doing well and he is not interested in increasing the dose. Denies depression, SI/HI. Will continue to monitor. #Esophageal reflux: Managed on pantoprazole 40 mg p.o. once daily. Denies any heartburn symptoms at this time. #Hyperlipidemia: Elevated total cholesterol of 209, triglycerides 239 and LDL 122. Currently on rosuvastatin 20 mg p.o. once daily. Will add Zetia 10 mg p.o. once daily. Plan to follow-up in 4 months and repeat lipids. # Glucose of 115. Will add A1c to upcoming blood work. #Elevated BMI: Wt: 222 lbs, BMI: 33.75 patient working on lifestyle modifications for intentional weight loss. States his goal is under 200 pounds. Patient walks his dog 2-3 times a day at [place]. States he has been limiting processed food and sugar in his diet. Encouraged to continue efforts. Plan to continue to monitor. #Hypertension: Blood pressure stable in office. Will continue to monitor. #Dizzy spells: Previous brain MRI of 01/02/2024 revealed no acute intracranial findings. Very mild chronic microvascular ischemic changes.Patient referred to cardiology with unremarkable workup 05/2024. States at times he feels unsteady when standing from a seated position. Denies chest pain, shortness of breath, palpitations, vision changes or headaches. Echocardiogram and carotid Dopplers as well as tilt table test unremarkable. Recommend increase water consumption to avoid dehydration. Will consider neurology follow-up if symptoms worsen. # Plan to follow-up in 4 months and repeat labs. All questions answered to patients satisfaction. Patient verbalized understanding of diagnosis and treatments explained. To call sooner prior to next visit it any questions/concerns arise. Case discussed with collaborating physician Dr. Way who reviewed the assessment and plan. Chart, medications, labs, vital signs reviewed. Dictation was accomplished with the use of [employer] voice recognition software, prone to medical misidentifications and grammatical errors. This is unintentional and the practitioner does try to identify and correct these, but some could still be present. Please do not hesitate to contact practitioner for clarification. 06/26/2024 Hyperlipidemia, unspecified hyperlipidemia type (ICD-10 - E78.5) Patient seen and examined. Comprehensive discussion was done on the following. 1. Nutrition: It is important to follow a healthy diet based on lots of vegetables and legumes and good fat. Avoid processed food and processed carbohydrates. Learn to prepare your own meals. Learn to read labels and avoid high fructose corn syrup, processed chemicals added to increase shelf life and preprepared meals. Avoid fast foods. Learn to eat slowly and plan meals for a week. Try to count calories and be mindful off daily calorie intake. Get into the habit of keeping an eye on your weight by using an appropriate scale. Learn to log exercise and discussed fitness Apps like [employer] which can help keep log off calories taken versus calories burned. Local food should be preferred. Discussed Dirty Dozen Versus Clean Fifteen. Discussed healthy supplements like fish oil, Tumeric, Curcumin, Melatonin, Resveratrol, Probiotics, Vitamin-D, Alpha-Lipoic acid, Vitamin-D and coconut oil. 2. It is important to exercise regularly. Is a good habit to walk at least 30-45 minutes a day. Gentle weightlifting with standard precautions to protect the back. Finding activity like cycling or hiking and get into the habit of engaging in it. Stretching before and after the exercises important. It is also important to contact me if there are any problems like shortness of breath, chest pain, back pain and joint or muscle pain associated with the exercise. 3. Discussed age appropriate screening guidelines. Colonoscopy needs to start at age 50 with stool for occult blood as appropriate. There is a new test that can test for genetic abnormalities in the stool sample. This would not replace a colonoscopy but could be used as a screening tool for patients who do not want a colonoscopy. We discussed the importance of early detection of colon cancer. 4. Discussed current PSA screening. PSA screening can be done in most patients between age 50 and 65. However early detection of prostate cancer needs to carefully be balanced with complications with treatment. These include incontinence, impotence etc. Each patient should decide if they would like to have this test. 5. Discussed safe driving and no use of smart phone while driving 6. Age-appropriate immunizations were discussed. A tetanus booster is needed every 10 years. Flu vaccine is recommended every year just before the start of the flu season. Shingles vaccine is recommended after age 50 but not all insurances cover it. Pneumonia vaccine is given after age 65 unless there are certain comorbidities for which it is started earlier. 7. Diagnostic labs were discussed. These could include CBC CMP and lipids with fasting blood glucose and insulin levels. Vitamin D and hemoglobin A1c testing might be appropriate. 8. Mini-Mental exam is 30 out of 30 patient does not consume alcohol at all recommended messages order for life-sustaining treatment and healthcare proxy discussed bereavement as his has and offered support. He regularly walks with his dog in [place] in [place]. Continue to be a resource as needed and continue to be active. Episodes of dizziness are still there but has had a complete cardiac workup. Take fall precautions and follow-up advised along with hydration 04/13/2024 GERD (gastroesophageal reflux disease) (ICD-10 - K21.9) Ashley is a 73-year-old male history of hyperlipidemia, GERD, and depression who presents the office today for urgent visit for high blood pressure. He reports labile blood pressures over the past several weeks with readings as high as 169/95 and as low as 125/77 recorded on Qardio device. He admits to increased stress in his life at this time as his Nicole is on hospice care and he is managing her care along with home nursing services. Reports he has never had blood pressure before. He is without shortness of breath, chest pain, dyspnea exertion, abdominal pain, nausea, vomiting, diarrhea, or weakness. Of note recently seen by [facility] on 02/15/2024 for symptoms of dizziness and unsteadiness at which time noncardiac etiology of symptoms were determined. Carotid ultrasound performed which showed right and left minimal nonhemodynamically significant stenosis of the proximal right and left internal carotid artery corresponding to 0 to 49% stenosis by velocity criteria. Patient states also underwent tilt table testing and echocardiogram, have requested reports. On physical exam today patient is well-appearing in no acute distress. Vital signs are stable with blood pressure 128/80 and repeated blood pressure at the end of visit 122/82. Heart rate 92, oxygen saturation 92% on room air. Regular rate and rhythm appreciated without murmurs, rubs, or gallops. 2+ and equal radial pulses appreciated bilaterally. Lungs are clear to auscultation bilaterally without stridor, wheezing, rhonchi, or rales. At this time given clinical presentation patient most likely has labile high blood pressure most likely secondary to increased stress. Educated to continue to use blood pressure monitoring device regularly at home. Educated to rest his arm on a flat surface while his arm at heart level while monitoring blood pressure and to have legs uncrossed during reading. Also discussed the importance of continuing to lean on support systems during this time of increased stress including his [id number] who is staying at the house to help with care and his son. He reports several family members and friends would come by the house to bring meals and assisting care. Advised to continue to monitor for symptoms consistent with red flag signs of hypertension including but not limited to chest pain, shortness of breath, dyspnea exertion, diaphoresis, palpitations, abdominal pain, vomiting, or weakness. Educated that he develops any of the symptoms to go to the emergency department. Patient will follow-up via telehealth visit in 2 weeks on 04/27/2024 to reevaluate blood pressure and symptoms. Patient is understanding and agrees with plan. All patient questions answered at this time. # Anxiety: Patient reports mood is okay [...] He demonstrates understanding. Will continue to monitor. All questions have been answered to patient's satisfaction. Patient verbalized understanding of diagnosis and treatments explained. Advised to call sooner prior to next visit it any questions/concerns arise. Case discussed with collaborating physician Dg Way who reviewed the assessment and plan. Chart, medications, labs, vital signs reviewed. Dictation was accomplished with the use of [employer] voice recognition software, which is prone to medical misidentifications and grammatical errors. This are unintentional and the practitioner does try to identify and correct these, but some could still be present. Please do not hesitate to contact practitioner for clarification. 03/22/2024 Anxiety (ICD-10 - F41.9) #HLD Taking rosuvastatin with no issues. Continue current regimen. #GERD Taking pantoprazole with no issues. Continue current regimen. #Anxiety Taking sertraline with no issues. Continue current regimen. #HTN Patients BP has been elevated in previous visits as well as today at 152/86. Discussed with patient the potential of placing him on a low-dose antihypertensive. Patient educated on monitoring BP at home with RPM. #Dizziness All work-up has been negative so far. Discovered bilateral cerumen impaction today, which could be causing symptoms. Patient educated on use of OTC wax remover drops to soften cerumen and prepare for ear irrigation next week. Patient received flu shot today in office. Patient is set to follow-up for ear irrigation next week, and in 3 months for a MWV. 02/08/2024 Anxiety (ICD-10 - F41.9) #Dizziness: DDx at this time includes valvular dysfunction, CHF, cardiac arrhythmias, anxiety and MS. Referral to [facility] is being made in attempt to have an echocardiogram performed as soon as possible to evaluate cardiac causes. He denies any feelings of anxiety since starting Sertraline. He states he feels calm, has been sleeping throughout the entire night and denies palpitations. MRI obtained did not find any evidence of MS. #Anxiety: Continue Sertraline HCl 50mg daily #Hyperilipidemia: Continue Rosuvastatin 20mg daily #GERD: Continue Pantoprazole 40mg daily. Avoid spicy or hot foods, maintain upright position after eating. 02/08/2024 Double vision (ICD-10 - H53.2) #Dizziness: DDx at this time includes valvular dysfunction, CHF, cardiac arrhythmias, anxiety and MS. Referral to [facility] is being made in attempt to have an echocardiogram performed as soon as possible to evaluate cardiac causes. He denies any feelings of anxiety since starting Sertraline. He states he feels calm, has been sleeping throughout the entire night and denies palpitations. MRI obtained did not find any evidence of MS. #Anxiety: Continue Sertraline HCl 50mg daily #Hyperilipidemia: Continue Rosuvastatin 20mg daily #GERD: Continue Pantoprazole 40mg daily. Avoid spicy or hot foods, maintain upright position after eating. 03/22/2024 GERD (gastroesophageal reflux disease) (ICD-10 - K21.9) #HLD Taking rosuvastatin with no issues. Continue current regimen. #GERD Taking pantoprazole with no issues. Continue current regimen. #Anxiety Taking sertraline with no issues. Continue current regimen. #HTN Patients BP has been elevated in previous visits as well as today at 152/86. Discussed with patient the potential of placing him on a low-dose antihypertensive. Patient educated on monitoring BP at home with RPM. #Dizziness All work-up has been negative so far. Discovered bilateral cerumen impaction today, which could be causing symptoms. Patient educated on use of OTC wax remover drops to soften cerumen and prepare for ear irrigation next week. Patient received flu shot today in office. Patient is set to follow-up for ear irrigation next week, and in 3 months for a MWV. 04/13/2024 Obesity (BMI 30-39.9) (ICD-10 - E66.9) Ashley is a 73-year-old male history of hyperlipidemia, GERD, and depression who presents the office today for urgent visit for high blood pressure. He reports labile blood pressures over the past several weeks with readings as high as 169/95 and as low as 125/77 recorded on Qardio device. He admits to increased stress in his life at this time as his Nicole is on hospice care and he is managing her care along with home nursing services. Reports he has never had blood pressure before. He is without shortness of breath, chest pain, dyspnea exertion, abdominal pain, nausea, vomiting, diarrhea, or weakness. Of note recently seen by [facility] on 02/15/2024 for symptoms of dizziness and unsteadiness at which time noncardiac etiology of symptoms were determined. Carotid ultrasound performed which showed right and left minimal nonhemodynamically significant stenosis of the proximal right and left internal carotid artery corresponding to 0 to 49% stenosis by velocity criteria. Patient states also underwent tilt table testing and echocardiogram, have requested reports. On physical exam today patient is well-appearing in no acute distress. Vital signs are stable with blood pressure 128/80 and repeated blood pressure at the end of visit 122/82. Heart rate 92, oxygen saturation 92% on room air. Regular rate and rhythm appreciated without murmurs, rubs, or gallops. 2+ and equal radial pulses appreciated bilaterally. Lungs are clear to auscultation bilaterally without stridor, wheezing, rhonchi, or rales. At this time given clinical presentation patient most likely has labile high blood pressure most likely secondary to increased stress. Educated to continue to use blood pressure monitoring device regularly at home. Educated to rest his arm on a flat surface while his arm at heart level while monitoring blood pressure and to have legs uncrossed during reading. Also discussed the importance of continuing to lean on support systems during this time of increased stress including his [id number] who is staying at the house to help with care and his son. He reports several family members and friends would come by the house to bring meals and assisting care. Advised to continue to monitor for symptoms consistent with red flag signs of hypertension including but not limited to chest pain, shortness of breath, dyspnea exertion, diaphoresis, palpitations, abdominal pain, vomiting, or weakness. Educated that he develops any of the symptoms to go to the emergency department. Patient will follow-up via telehealth visit in 2 weeks on 04/27/2024 to reevaluate blood pressure and symptoms. Patient is understanding and agrees with plan. All patient questions answered at this time. # Anxiety: Patient reports mood is okay [...] He demonstrates understanding. Will continue to monitor. All questions have been answered to patient's satisfaction. Patient verbalized understanding of diagnosis and treatments explained. Advised to call sooner prior to next visit it any questions/concerns arise. Case discussed with collaborating physician Dg Way who reviewed the assessment and plan. Chart, medications, labs, vital signs reviewed. Dictation was accomplished with the use of [employer] voice recognition software, which is prone to medical misidentifications and grammatical errors. This are unintentional and the practitioner does try to identify and correct these, but some could still be present. Please do not hesitate to contact practitioner for clarification. 06/26/2024 Essential (primary) hypertension (ICD-10 - I10) Patient seen and examined. Comprehensive discussion was done on the following. 1. Nutrition: It is important to follow a healthy diet based on lots of vegetables and legumes and good fat. Avoid processed food and processed carbohydrates. Learn to prepare your own meals. Learn to read labels and avoid high fructose corn syrup, processed chemicals added to increase shelf life and preprepared meals. Avoid fast foods. Learn to eat slowly and plan meals for a week. Try to count calories and be mindful off daily calorie intake. Get into the habit of keeping an eye on your weight by using an appropriate scale. Learn to log exercise and discussed fitness Apps like [employer] which can help keep log off calories taken versus calories burned. Local food should be preferred. Discussed Dirty Dozen Versus Clean Fifteen. Discussed healthy supplements like fish oil, Tumeric, Curcumin, Melatonin, Resveratrol, Probiotics, Vitamin-D, Alpha-Lipoic acid, Vitamin-D and coconut oil. 2. It is important to exercise regularly. Is a good habit to walk at least 30-45 minutes a day. Gentle weightlifting with standard precautions to protect the back. Finding activity like cycling or hiking and get into the habit of engaging in it. Stretching before and after the exercises important. It is also important to contact me if there are any problems like shortness of breath, chest pain, back pain and joint or muscle pain associated with the exercise. 3. Discussed age appropriate screening guidelines. Colonoscopy needs to start at age 50 with stool for occult blood as appropriate. There is a new test that can test for genetic abnormalities in the stool sample. This would not replace a colonoscopy but could be used as a screening tool for patients who do not want a colonoscopy. We discussed the importance of early detection of colon cancer. 4. Discussed current PSA screening. PSA screening can be done in most patients between age 50 and 65. However early detection of prostate cancer needs to carefully be balanced with complications with treatment. These include incontinence, impotence etc. Each patient should decide if they would like to have this test. 5. Discussed safe driving and no use of smart phone while driving 6. Age-appropriate immunizations were discussed. A tetanus booster is needed every 10 years. Flu vaccine is recommended every year just before the start of the flu season. Shingles vaccine is recommended after age 50 but not all insurances cover it. Pneumonia vaccine is given after age 65 unless there are certain comorbidities for which it is started earlier. 7. Diagnostic labs were discussed. These could include CBC CMP and lipids with fasting blood glucose and insulin levels. Vitamin D and hemoglobin A1c testing might be appropriate. 8. Mini-Mental exam is 30 out of 30 patient does not consume alcohol at all recommended messages order for life-sustaining treatment and healthcare proxy discussed bereavement as his has and offered support. He regularly walks with his dog in [place] in [place]. Continue to be a resource as needed and continue to be active. Episodes of dizziness are still there but has had a complete cardiac workup. Take fall precautions and follow-up advised along with hydration 10/24/2024 Elevated glucose (ICD-10 - R73.09) Ashley is a pleasant 74-year-old male present today for follow-up. #Grief: Patient unfortunately lost his approximately 5 months ago after being on hospice x 4 months. 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 Overall doing fairly well, sleeping well at night and has resumed sleeping in his bed since his passed. Manage on sertraline 50 mg p.o. once daily. States this dose is doing well and he is not interested in increasing the dose. Denies depression, SI/HI. Will continue to monitor. #Esophageal reflux: Managed on pantoprazole 40 mg p.o. once daily. Denies any heartburn symptoms at this time. #Hyperlipidemia: Elevated total cholesterol of 209, triglycerides 239 and LDL 122. Currently on rosuvastatin 20 mg p.o. once daily. Will add Zetia 10 mg p.o. once daily. Plan to follow-up in 4 months and repeat lipids. # Glucose of 115. Will add A1c to upcoming blood work. #Elevated BMI: Wt: 222 lbs, BMI: 33.75 patient working on lifestyle modifications for intentional weight loss. States his goal is under 200 pounds. Patient walks his dog 2-3 times a day at [place]. States he has been limiting processed food and sugar in his diet. Encouraged to continue efforts. Plan to continue to monitor. #Hypertension: Blood pressure stable in office. Will continue to monitor. #Dizzy spells: Previous brain MRI of 01/02/2024 revealed no acute intracranial findings. Very mild chronic microvascular ischemic changes.Patient referred to cardiology with unremarkable workup 05/2024. States at times he feels unsteady when standing from a seated position. Denies chest pain, shortness of breath, palpitations, vision changes or headaches. Echocardiogram and carotid Dopplers as well as tilt table test unremarkable. Recommend increase water consumption to avoid dehydration. Will consider neurology follow-up if symptoms worsen. # Plan to follow-up in 4 months and repeat labs. All questions answered to patients satisfaction. Patient verbalized understanding of diagnosis and treatments explained. To call sooner prior to next visit it any questions/concerns arise. Case discussed with collaborating physician Dr. Way who reviewed the assessment and plan. Chart, medications, labs, vital signs reviewed. Dictation was accomplished with the use of [employer]ote voice recognition software, prone to medical misidentifications and grammatical errors. This is unintentional and the practitioner does try to identify and correct these, but some could still be present. Please do not hesitate to contact practitioner for clarification. 10/24/2024 Obesity (BMI 30-39.9) (ICD-10 - E66.9) Ashley is a pleasant 74-year-old male present today for follow-up. #Grief: Patient unfortunately lost his approximately 5 months ago after being on hospice x 4 months. 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 Overall doing fairly well, sleeping well at night and has resumed sleeping in his bed since his passed. Manage on sertraline 50 mg p.o. once daily. States this dose is doing well and he is not interested in increasing the dose. Denies depression, SI/HI. Will continue to monitor. #Esophageal reflux: Managed on pantoprazole 40 mg p.o. once daily. Denies any heartburn symptoms at this time. #Hyperlipidemia: Elevated total cholesterol of 209, triglycerides 239 and LDL 122. Currently on rosuvastatin 20 mg p.o. once daily. Will add Zetia 10 mg p.o. once daily. Plan to follow-up in 4 months and repeat lipids. # Glucose of 115. Will add A1c to upcoming blood work. #Elevated BMI: Wt: 222 lbs, BMI: 33.75 patient working on lifestyle modifications for intentional weight loss. States his goal is under 200 pounds. Patient walks his dog 2-3 times a day at [place]. States he has been limiting processed food and sugar in his diet. Encouraged to continue efforts. Plan to continue to monitor. #Hypertension: Blood pressure stable in office. Will continue to monitor. #Dizzy spells: Previous brain MRI of 01/02/2024 revealed no acute intracranial findings. Very mild chronic microvascular ischemic changes.Patient referred to cardiology with unremarkable workup 05/2024. States at times he feels unsteady when standing from a seated position. Denies chest pain, shortness of breath, palpitations, vision changes or headaches. Echocardiogram and carotid Dopplers as well as tilt table test unremarkable. Recommend increase water consumption to avoid dehydration. Will consider neurology follow-up if symptoms worsen. # Plan to follow-up in 4 months and repeat labs. All questions answered to patients satisfaction. Patient verbalized understanding of diagnosis and treatments explained. To call sooner prior to next visit it any questions/concerns arise. Case discussed with collaborating physician Dr. Way who reviewed the assessment and plan. Chart, medications, labs, vital signs reviewed. Dictation was accomplished with the use of [employer] voice recognition software, prone to medical misidentifications and grammatical errors. This is unintentional and the practitioner does try to identify and correct these, but some could still be present. Please do not hesitate to contact practitioner for clarification. 04/13/2024 Anxiety (ICD-10 - F41.9) Ashley is a 73-year-old male history of hyperlipidemia, GERD, and depression who presents the office today for urgent visit for high blood pressure. He reports labile blood pressures over the past several weeks with readings as high as 169/95 and as low as 125/77 recorded on Qardio device. He admits to increased stress in his life at this time as his Nicole is on hospice care and he is managing her care along with home nursing services. Reports he has never had blood pressure before. He is without shortness of breath, chest pain, dyspnea exertion, abdominal pain, nausea, vomiting, diarrhea, or weakness. Of note recently seen by [facility] cardiology on 02/15/2024 for symptoms of dizziness and unsteadiness at which time noncardiac etiology of symptoms were determined. Carotid ultrasound performed which showed right and left minimal nonhemodynamically significant stenosis of the proximal right and left internal carotid artery corresponding to 0 to 49% stenosis by velocity criteria. Patient states also underwent tilt table testing and echocardiogram, have requested reports. On physical exam today patient is well-appearing in no acute distress. Vital signs are stable with blood pressure 128/80 and repeated blood pressure at the end of visit 122/82. Heart rate 92, oxygen saturation 92% on room air. Regular rate and rhythm appreciated without murmurs, rubs, or gallops. 2+ and equal radial pulses appreciated bilaterally. Lungs are clear to auscultation bilaterally without stridor, wheezing, rhonchi, or rales. At this time given clinical presentation patient most likely has labile high blood pressure most likely secondary to increased stress. Educated to continue to use blood pressure monitoring device regularly at home. Educated to rest his arm on a flat surface while his arm at heart level while monitoring blood pressure and to have legs uncrossed during reading. Also discussed the importance of continuing to lean on support systems during this time of increased stress including his [id number] who is staying at the house to help with care and his son. He reports several family members and friends would come by the house to bring meals and assisting care. Advised to continue to monitor for symptoms consistent with red flag signs of hypertension including but not limited to chest pain, shortness of breath, dyspnea exertion, diaphoresis, palpitations, abdominal pain, vomiting, or weakness. Educated that he develops any of the symptoms to go to the emergency department. Patient will follow-up via telehealth visit in 2 weeks on 04/27/2024 to reevaluate blood pressure and symptoms. Patient is understanding and agrees with plan. All patient questions answered at this time. # Anxiety: Patient reports mood is okay [...] He demonstrates understanding. Will continue to monitor. All questions have been answered to patient's satisfaction. Patient verbalized understanding of diagnosis and treatments explained. Advised to call sooner prior to next visit it any questions/concerns arise. Case discussed with collaborating physician Dg Way who reviewed the assessment and plan. Chart, medications, labs, vital signs reviewed. Dictation was accomplished with the use of [employer] voice recognition software, which is prone to medical misidentifications and grammatical errors. This are unintentional and the practitioner does try to identify and correct these, but some could still be present. Please do not hesitate to contact practitioner for clarification. 03/22/2024 Hyperlipidemia (ICD-10 - E78.5) #HLD Taking rosuvastatin with no issues. Continue current regimen. #GERD Taking pantoprazole with no issues. Continue current regimen. #Anxiety Taking sertraline with no issues. Continue current regimen. #HTN Patients BP has been elevated in previous visits as well as today at 152/86. Discussed with patient the potential of placing him on a low-dose antihypertensive. Patient educated on monitoring BP at home with RPM. #Dizziness All work-up has been negative so far. Discovered bilateral cerumen impaction today, which could be causing symptoms. Patient educated on use of OTC wax remover drops to soften cerumen and prepare for ear irrigation next week. Patient received flu shot today in office. Patient is set to follow-up for ear irrigation next week, and in 3 months for a MWV. 03/22/2024 Encounter for immunization (ICD-10 - Z23) #HLD Taking rosuvastatin with no issues. Continue current regimen. #GERD Taking pantoprazole with no issues. Continue current regimen. #Anxiety Taking sertraline with no issues. Continue current regimen. #HTN Patients BP has been elevated in previous visits as well as today at 152/86. Discussed with patient the potential of placing him on a low-dose antihypertensive. Patient educated on monitoring BP at home with RPM. #Dizziness All work-up has been negative so far. Discovered bilateral cerumen impaction today, which could be causing symptoms. Patient educated on use of OTC wax remover drops to soften cerumen and prepare for ear irrigation next week. Patient received flu shot today in office. Patient is set to follow-up for ear irrigation next week, and in 3 months for a MWV. 10/24/2024 Essential hypertension (ICD-10 - I10) Ashley is a pleasant 74-year-old male present today for follow-up. #Grief: Patient unfortunately lost his approximately 5 months ago after being on hospice x 4 months. 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 Overall doing fairly well, sleeping well at night and has resumed sleeping in his bed since his passed. Manage on sertraline 50 mg p.o. once daily. States this dose is doing well and he is not interested in increasing the dose. Denies depression, SI/HI. Will continue to monitor. #Esophageal reflux: Managed on pantoprazole 40 mg p.o. once daily. Denies any heartburn symptoms at this time. #Hyperlipidemia: Elevated total cholesterol of 209, triglycerides 239 and LDL 122. Currently on rosuvastatin 20 mg p.o. once daily. Will add Zetia 10 mg p.o. once daily. Plan to follow-up in 4 months and repeat lipids. # Glucose of 115. Will add A1c to upcoming blood work. #Elevated BMI: Wt: 222 lbs, BMI: 33.75 patient working on lifestyle modifications for intentional weight loss. States his goal is under 200 pounds. Patient walks his dog 2-3 times a day at [place]. States he has been limiting processed food and sugar in his diet. Encouraged to continue efforts. Plan to continue to monitor. #Hypertension: Blood pressure stable in office. Will continue to monitor. #Dizzy spells: Previous brain MRI of 01/02/2024 revealed no acute intracranial findings. Very mild chronic microvascular ischemic changes.Patient referred to cardiology with unremarkable workup 05/2024. States at times he feels unsteady when standing from a seated position. Denies chest pain, shortness of breath, palpitations, vision changes or headaches. Echocardiogram and carotid Dopplers as well as tilt table test unremarkable. Recommend increase water consumption to avoid dehydration. Will consider neurology follow-up if symptoms worsen. # Plan to follow-up in 4 months and repeat labs. All questions answered to patients satisfaction. Patient verbalized understanding of diagnosis and treatments explained. To call sooner prior to next visit it any questions/concerns arise. Case discussed with collaborating physician Dr. Way who reviewed the assessment and plan. Chart, medications, labs, vital signs reviewed. Dictation was accomplished with the use of [employer] voice recognition software, prone to medical misidentifications and grammatical errors. This is unintentional and the practitioner does try to identify and correct these, but some could still be present. Please do not hesitate to contact practitioner for clarification. 10/24/2024 Dizziness (ICD-10 - R42) Ashley is a pleasant 74-year-old male present today for follow-up. #Grief: Patient unfortunately lost his approximately 5 months ago after being on hospice x 4 months. 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 Overall doing fairly well, sleeping well at night and has resumed sleeping in his bed since his passed. Manage on sertraline 50 mg p.o. once daily. States this dose is doing well and he is not interested in increasing the dose. Denies depression, SI/HI. Will continue to monitor. #Esophageal reflux: Managed on pantoprazole 40 mg p.o. once daily. Denies any heartburn symptoms at this time. #Hyperlipidemia: Elevated total cholesterol of 209, triglycerides 239 and LDL 122. Currently on rosuvastatin 20 mg p.o. once daily. Will add Zetia 10 mg p.o. once daily. Plan to follow-up in 4 months and repeat lipids. # Glucose of 115. Will add A1c to upcoming blood work. #Elevated BMI: Wt: 222 lbs, BMI: 33.75 patient working on lifestyle modifications for intentional weight loss. States his goal is under 200 pounds. Patient walks his dog 2-3 times a day at [place]. States he has been limiting processed food and sugar in his diet. Encouraged to continue efforts. Plan to continue to monitor. #Hypertension: Blood pressure stable in office. Will continue to monitor. #Dizzy spells: Previous brain MRI of 01/02/2024 revealed no acute intracranial findings. Very mild chronic microvascular ischemic changes.Patient referred to cardiology with unremarkable workup 05/2024. States at times he feels unsteady when standing from a seated position. Denies chest pain, shortness of breath, palpitations, vision changes or headaches. Echocardiogram and carotid Dopplers as well as tilt table test unremarkable. Recommend increase water consumption to avoid dehydration. Will consider neurology follow-up if symptoms worsen. # Plan to follow-up in 4 months and repeat labs. All questions answered to patients satisfaction. Patient verbalized understanding of diagnosis and treatments explained. To call sooner prior to next visit it any questions/concerns arise. Case discussed with collaborating physician Dr. Way who reviewed the assessment and plan. Chart, medications, labs, vital signs reviewed. Dictation was accomplished with the use of [employer] voice recognition software, prone to medical misidentifications and grammatical errors. This is unintentional and the practitioner does try to identify and correct these, but some could still be present. Please do not hesitate to contact practitioner for clarification. 03/22/2024 Dizziness (ICD-10 - R42) #HLD Taking rosuvastatin with no issues. Continue current regimen. #GERD Taking pantoprazole with no issues. Continue current regimen. #Anxiety Taking sertraline with no issues. Continue current regimen. #HTN Patients BP has been elevated in previous visits as well as today at 152/86. Discussed with patient the potential of placing him on a low-dose antihypertensive. Patient educated on monitoring BP at home with RPM. #Dizziness All work-up has been negative so far. Discovered bilateral cerumen impaction today, which could be causing symptoms. Patient educated on use of OTC wax remover drops to soften cerumen and prepare for ear irrigation next week. Patient received flu shot today in office. Patient is set to follow-up for ear irrigation next week, and in 3 months for a MWV. 03/22/2024 Cerumen debris on tympanic membrane of both ears (ICD-10 - H61.23) #HLD Taking rosuvastatin with no issues. Continue current regimen. #GERD Taking pantoprazole with no issues. Continue current regimen. #Anxiety Taking sertraline with no issues. Continue current regimen. #HTN Patients BP has been elevated in previous visits as well as today at 152/86. Discussed with patient the potential of placing him on a low-dose antihypertensive. Patient educated on monitoring BP at home with RPM. #Dizziness All work-up has been negative so far. Discovered bilateral cerumen impaction today, which could be causing symptoms. Patient educated on use of OTC wax remover drops to soften cerumen and prepare for ear irrigation next week. Patient received flu shot today in office. Patient is set to follow-up for ear irrigation next week, and in 3 months for a MWV. 10/24/2024 Encounter for examination of blood pressure without abnormal findings (ICD-10 - Z01.30) Ashley is a pleasant 74-year-old male present today for follow-up. #Grief: Patient unfortunately lost his approximately 5 months ago after being on hospice x 4 months. 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 Overall doing fairly well, sleeping well at night and has resumed sleeping in his bed since his passed. Manage on sertraline 50 mg p.o. once daily. States this dose is doing well and he is not interested in increasing the dose. Denies depression, SI/HI. Will continue to monitor. #Esophageal reflux: Managed on pantoprazole 40 mg p.o. once daily. Denies any heartburn symptoms at this time. #Hyperlipidemia: Elevated total cholesterol of 209, triglycerides 239 and LDL 122. Currently on rosuvastatin 20 mg p.o. once daily. Will add Zetia 10 mg p.o. once daily. Plan to follow-up in 4 months and repeat lipids. # Glucose of 115. Will add A1c to upcoming blood work. #Elevated BMI: Wt: 222 lbs, BMI: 33.75 patient working on lifestyle modifications for intentional weight loss. States his goal is under 200 pounds. Patient walks his dog 2-3 times a day at [place]. States he has been limiting processed food and sugar in his diet. Encouraged to continue efforts. Plan to continue to monitor. #Hypertension: Blood pressure stable in office. Will continue to monitor. #Dizzy spells: Previous brain MRI of 01/02/2024 revealed no acute intracranial findings. Very mild chronic microvascular ischemic changes.Patient referred to cardiology with unremarkable workup 05/2024. States at times he feels unsteady when standing from a seated position. Denies chest pain, shortness of breath, palpitations, vision changes or headaches. Echocardiogram and carotid Dopplers as well as tilt table test unremarkable. Recommend increase water consumption to avoid dehydration. Will consider neurology follow-up if symptoms worsen. # Plan to follow-up in 4 months and repeat labs. All questions answered to patients satisfaction. Patient verbalized understanding of diagnosis and treatments explained. To call sooner prior to next visit it any questions/concerns arise. Case discussed with collaborating physician Dr. Way who reviewed the assessment and plan. Chart, medications, labs, vital signs reviewed. Dictation was accomplished with the use of [employer] voice recognition software, prone to medical misidentifications and grammatical errors. This is unintentional and the practitioner does try to identify and correct these, but some could still be present. Please do not hesitate to contact practitioner for clarification. 04/27/2024 Patient is seen today via telehealth [...] Will continue to monitor. Plan Of Treatment Pending Test Test Name Order Date MRI : Brain with and without contrast EKG 10/06/2017 CBC (COMPLETE BLOOD COUNT) 10/06/2017 CBC (COMPLETE BLOOD COUNT) 07/13/2019 CBC (COMPLETE BLOOD COUNT) 11/25/2020 CBC (COMPLETE BLOOD COUNT) 05/08/2020 CBC (COMPLETE BLOOD COUNT) WITH DIFF COMPREHENSIVE METABOLIC PANEL 05/13/2023 COMPREHENSIVE METABOLIC PANEL 11/25/2020 COMPREHENSIVE METABOLIC PANEL 07/13/2019 COMPREHENSIVE METABOLIC PANEL 10/06/2017 HEMOGLOBIN A1C 05/08/2020 HEMOGLOBIN A1C 10/06/2017 LIPID PANEL 10/06/2017 LIPID PANEL 07/13/2019 LIPID PANEL 04/06/2018 LIPID PANEL 05/08/2020 LIPID PANEL 11/25/2020 LIPID PANEL 05/13/2023 MERCURY 04/06/2018 PSA, SCREEN 10/06/2017 URINALYSIS, COMPLETE 05/08/2020 URINALYSIS, COMPLETE 07/13/2019 URINE MICROSCOPIC 10/06/2017 Cologuard 05/13/2021 LIPID PANEL, STANDARD 10/24/2024 LIPID PANEL, STANDARD 06/26/2024 COMPREHENSIVE METABOLIC PANEL 06/26/2024 COMPREHENSIVE METABOLIC PANEL 10/24/2024 COMPREHENSIVE METABOLIC PANEL 12/28/2023 CBC (INCLUDES DIFF/PLT) 12/28/2023 CBC (INCLUDES DIFF/PLT) 10/24/2024 CBC (INCLUDES DIFF/PLT) 06/26/2024 URINALYSIS, COMPLETE 10/24/2024 HEMOGLOBIN A1c 10/24/2024 VITAMIN B12/FOLATE, SERUM PANEL 12/28/19 24 LEAD, VENOUS, BLOOD 04/06/2018 COMPLETE URINALYSIS 11/25/2020 Knee 3 Views Left 10/26/2023 LYME AB SCREEN 12/28/2023 Next Appt Details Provider Name:DANIEL BELINDA, 03/05/2025 09:00:00 AM, [address], [place], [id number], Insurance Providers Payer Name Payer Address Payer Phone Subscriber Number Group Number Insured Name Patient Relationship to Insured Coverage Start Date Coverage End Date Medicare Part B J14 [address] [place] [id number] ASHLEY XIONG Self - patient is the insured [employer] [address] [place] [phone] [id number] ASHLEY XIONG Self - patient is the insured Medical (General) History Medical History History ICD Code anxiety esophageal reflux hyperglycemia Colonoscopy 13 years Surgical History Surgery Date(Month/Year) Knee Arthroscopy Laminectomy with disc removal Neck Surgery
== END 2025-01-02 10:52 | disposition home or self-care (01) ==
LOC: HO.HCS 09:47
PROVIDERS: PCP Internal Medicine; Visit Provider Nurse Practitioner Family
DX: I49.3 Ventricular premature depolarization (principal); I49.1 Atrial premature depolarization; R42 Dizziness and giddiness
CPT/HCPCS: 99214; G2211

== ENCOUNTER → 2025-01-02 09:47 | Outpatient (BNVA) | payer MEDICARE, OTHER, SELFPAY | PROVIDERS: PCP Internal Medicine; Visit Provider Nurse Practitioner Family | DX: I49.3 Ventricular premature depolarization (principal); I49.1 Atrial premature depolarization; R42 Dizziness and giddiness | CPT/HCPCS: 99212 ==

== ENCOUNTER → 2025-02-15 08:12 | Outpatient (REF) | payer MEDICARE, OTHER, SELFPAY ==
--- OUTSIDE RECORDS SUMMARY | 2024-03-14 12:34 | XMS_ITS | Encounter Summary ---
Author Organization [facility] Address [address] [place] [address] Care Team Providers Care Stemming Machine Operator Name Role Phone Katrin Way MD Primary Care Provider [phone] Encounter Details Date Type Department Care Team (Late st Contact Info) Description 03/14/2024 12:34 PM EDT Hospital Encounter TH HISTORIC ENCOUNTERS EASTERN CONVERSION ONLY Benjy Hendrickson MD [facility] [place] [phone] Social History Tobacco Use Types Packs/Day Years Used Date Smoking Tobacco: Never Assessed Sex and Gender Information Value Date Recorded Sex Assigned at Not on file Legal Sex Male 11:25 PM EST Gender Identity Not on file Sexual Orientation Not on file documented as of this encounter Procedure Notes * Bhavna Alexis NP - 03/14/2024 2:40 PM EDT Procedure Note Encounter Date & Time 03/14/24 14:37 Procedure Note Procedure: Tilt table test The patient was brought to the radiology department in fasting state and placed onto the tilt table. He was connected to continuous noninvasive EKG monitoring. The [facility] finger blood pressure monitor was used for the duration of the procedure. An intravenous line was inserted with normal saline at a KVO rate. Baseline blood pressure 144/76 with a heart rate of 80 normal sinus rhythm. After 5-minute wait. Table tilted to a 70 degree upright position. The first blood pressure upright is 132/68 with a heart of 82. The patient is having frequent multifocal PVCs some bigeminy and occasional couplets. Patient is asymptomatic with these. 10 minutes of blood pressure is 150/81 with a heart rate of 82 20 minutes 161/80 with a heart rate of 87. No change in the frequency of his ventricular ectopy Nitroglycerin 1/150 sublingual was given. After 2 minutes of blood pressure is 158/87 with a heart rate of 91 3 minutes 143/75 with a heart rate of 99 4 minutes 122/71 with a heart of 106 5 minutes 110/67 with a heart rate of 110 6 minutes 72/48 with a heart rate of 80. The symptoms he is feeling now are very similar to what he has been experiencing at home. The patient was returned to a flat position and received 500 cc of IV normal saline with quick stabilization's of symptoms. Impression: Dehydration. I have encouraged the patient to increase his fluid intake. Send Copies To: DR HENDRICKSON; KATRIN WAY MD, PHYLLIS A FNP-Marybeth Mar 14, 2024 14:40 documented in this encounter Plan of Treatment Not on file documented as of this encounter Procedures Procedure Name Priority Date/Time Associated Diagnosis Comments ECG 03/14/2024 documented in this encounter Results * ECG (03/14/2024) us Provider Onbase CV HISTORICAL CONV PROCEDURES Final Result documented in this encounter Visit Diagnoses Not on filedocumented in this encounter Care Teams Stemming Machine Operator Relationship Specialty Start Date End Date Katrin Way MD PCP - General Internal Medicine 05/22/16 documented as of this encounter
--- OUTSIDE RECORDS SUMMARY | 2024-04-27 10:00 | XMS_ITS ---
Author Organization [facility] [address] Address [address] [place] [address] Care Team Providers Care Sales Project Coordinator Name Role Phone KATRIN ROJAS Primary Care Provider [phone] SLOANE DE PAZ [phone] Medications Medication SIG (Take, Route, Frequency, Duration) Notes Start Date End Date Status Diclofenac Sodium 1 % APPLY TO AFFECTED AREA EXTERNALLY TWICE A DAY; Duration: 30 Not-Taking Rosuvastatin Calcium 20 MG TAKE 1 TABLET BY MOUTH EVERY DAY; Duration: 90 Active Sertraline HCl 50 MG TAKE 1 TABLET BY [facility] EVERY DAY; Duration: 90 Active Multi For Him - Orally Acti ve Pantoprazole Sodium 40 MG TAKE 1 TABLET BY MOUTH EVERY DAY FOR 90 DAYS; Duration: 90 Active Encounters Encounter Location Date Provider Diagnosis [facility] [address] [place] [id number] 04/27/2024 SLOANE DE PAZ Assessments Encounter Date Diagnosis (ICD Code) Assessment Notes Treatment Notes Treatment Clinical Notes Section Notes 04/27/2024 Patient is seen today via telehealth agreement, with consent of patient. I used the following telehealth technology telephone during this visit This encounter is appropriate and reasonable under the circumstances given the patient's particular presentation. The patient has been advised of the potential risks and limitations of this mode of treatment including but not limited to the absence of in person physical examination, and has agreed to be treated in a remote fashion in spite of this. Any and all patient questions have been answered. The patient also has been advised to contact this office for worsening conditions or problems and seek medical treatment and/or call 911 if the patient deems either necessary # Anxiety: Patient reports mood is okay at this time, understandably given his currently on hospice. Continue sertraline 50 mg once daily. Educated on proper use of medication and expected side effect profile including but not limited to weight gain, sexual dysfunction, and increased depression. Will continue to monitor. # GERD: Stable at this time. Continue pantoprazole 40 mg once daily in the morning before morning meal. Educated on proper use of medication and expected side effect profile including but not limited to headache, diarrhea, abdominal pain, nausea, and vomiting. Will continue to monitor. # Hyperlipidemia: Last lipid panel obtained on 10/20/2023 with values including cholesterol 201, HDL 51, triglycerides 126, and LDL 126. Continue rosuvastatin calcium 20 mg once daily. Educated on proper use of medication and expected side effect profile including but not limited to headache, myalgia, abdominal pain, and nausea. Will continue to monitor. # Obesity: Weight 229 pounds, BMI 34.82. Patient states his weight usually is between 190 to 200 pounds. Reports that during this time while his is on hospice he has had several family members come over and bring meals and desserts which she has indulged in. Educated the importance of diet lifestyle maintaining a healthy weight for the patient. He demonstrates understanding. Will continue to monitor. Plan Of Treatment Next Appt Details Provider Name:DANIEL TREVINO, 03/05/2025 09:00:00 AM, [address] , [place], [address], Progress Notes * ASHLEY XIONG LDOB:[birth year] (74 yo M)Acc No.[id number]:04/27/2024 Patient: Dandy ROSYASHLEY STARK Provider: Lionel DE PAZ :1950 A ge:73 Y S ex:Male Date:04/27/2024 Address:[address] [place] [address] Pcp:KATRIN ROJAS Subjective: * Chief Complaints: * * HPI: C onstitutional: Ashley is a 73-year-old male with history of hyperlipidemia, GERD, and depression presents today via telehealth visit for blood pressure follow-up. He was recently seen in the office on 04/13/2024 for elevated blood pressure. Patient has a cWyze blood pressure monitoring device. Last visible blood pressure documented on 04/14/2024 and was 143/86. Attributed variably increased blood pressure to stress in his life as his Nicole is currently on hospice and he is managing her care along with home nursing services. Has good support at home. * Medical History: A nxiety, Esophageal reflux, Hyperglycemia, Colonoscopy 13 years. * Medications: T aking Multi For Him - Tablet Orally , Taking Sertraline HCl 50 MG Tablet TAKE 1 TABLET BY MOUTH EVERY DAY , Taking Rosuvastatin Calcium 20 MG Tablet TAKE 1 TABLET BY MOUTH EVERY DAY , Taking Pantoprazole Sodium 40 MG Tablet Delayed Release TAKE 1 TABLET BY MOUTH EVERY DAY FOR 90 DAYS , Not-Taking Diclofenac Sodium 1 % Gel APPLY TO AFFECTED AREA EXTERNALLY TWICE A DAY Objective: * Vitals: * Examination: G eneral Examination: P hysical exam unable to be obtained due to nature of telehealth visit. Assessment: * Assessment: Patient is seen today via [facility] agreement, with consent of patient. I used the following telehealth technology telephone during this visit This encounter is appropriate and reasonable under the circumstances given the patient's particular presentation. The patient has been advised of the potential risks and limitations of this mode of treatment including but not limited to the absence of in person physical examination, and has agreed to be treated in a remote fashion in spite of this. Any and all patient questions have been answered. The patient also has been advised to contact this office for worsening conditions or problems and seek medical treatment and/or call 911 if the patient deems either necessary # Anxiety: Patient reports mood is okay at this time, understandably given his currently on hospice. Continue sertraline 50 mg once daily. Educated on proper use of medication and expected side effect profile including but not limited to weight gain, sexual dysfunction, and increased depression. Will continue to monitor. # GERD: Stable at this time. Continue pantoprazole 40 mg once daily in the morning before morning meal. Educated on proper use of medication and expected side effect profile including but not limited to headache, diarrhea, abdominal pain, nausea, and vomiting. Will continue to monitor. # Hyperlipidemia: Last lipid panel obtained on 10/20/2023 with values including cholesterol 201, HDL 51, triglycerides 126, and LDL 126. Continue rosuvastatin calcium 20 mg once daily. Educated on proper use of medication and expected side effect profile including but not limited to headache, myalgia, abdominal pain, and nausea. Will continue to monitor. # Obesity: Weight 229 pounds, BMI 34.82. Patient states his weight usually is between 190 to 200 pounds. Reports that during this time while his is on hospice he has had several family members come over and bring meals and desserts which she has indulged in. Educated the importance of diet lifestyle maintaining a healthy weight for the patient. He demonstrates understanding. Will continue to monitor. Plan: * Treatment: * Images: Billing Information: * Visit Code: * Procedure Codes: * Electronic signature of LEELA DE PAZ PA-C, [id number] on 02/15/2025 at 08:29 AM EDT Sign off status: Pending * Provider: Lionel DE PAZ Date: 1 06/27/2023 Generated for Romulo hobson/Edi/Huy on: 0 02/15/2025 08:29 AM EDT History and Physical Notes * HPI (History of Present Illness) Category Sub-Category Detail Notes Category Not es Constitutional Ashley is a [age]-year-old male with history of hyperlipidemia, GERD, and depression presents today via telehealth visit for blood pressure follow-up. He was recently seen in the office on 04/13/2024 for elevated blood pressure. Patient has a cWyze blood pressure monitoring device. Last visible blood pressure documented on 04/14/2024 and was 143/86. Attributed variably increased blood pressure to stress in his life as his Nicole is currently on hospice and he is managing her care along with home nursing services. Has good support at home. Examination Category Sub-Category Detail Notes Category Not es General Examination Physical exam unable to be obtained due to nature of telehealth visit.
--- NOTE | ~2025-02-15 | NM_ITS ---
EXERCISE MYOCARDIAL PERFUSION STUDY INDICATION: Cardiac arrhythmias to evaluate for myocardial ischemia TECHNIQUE: The patient was brought in for an exercise perfusion study on 02/15/2025. Patient performed exercise as per Juan protocol and was injected 30 mCi of sestamibi once target heart rate was achieved. Images were obtained using the SPECT gamma camera interlaced with the gating device. Images were obtained in supine position. Resting perfusion study was performed on 02/16/2025. Patient was administered 30 mCi of sestamibi intravenously at rest. Images were then obtained in supine position. Images obtained without without CT attenuation. Total DLP 195 mGy-cm Images were processed with the software and compared side to side in short axis, horizontal long axis and vertical long axis views. FINDINGS: Raw images were reviewed. Arms down position was noted on both stress and rest imaging with evidence of attenuation of the lateral and inferior wall on raw images. The stress perfusion study showed nonattenuated images show mildly reduced uptake in the inferolateral as well as lateral wall of the LV myocardium. Is also mildly reduced uptake in the entire inferior wall of the LV myocardium. Attenuated corrected images show minimal thinning of the apex of the LV myocardium.. The gated study shows normal LV systolic function with calculated LVEF of 55%. LV cavity is normal in size. The gated study shows normal systolic wall thickening and contraction of segments. Resting study shows nonattenuated images show improved uptake in the inferolateral, inferior as well as the lateral wall of the LV myocardium. Attenuated corrected images show mildly reduced uptake in the apex of the LV myocardium. Gating at rest reveals normal systolic wall motion with ejection fraction at 61%. The findings are consistent with reversible defect noted on nonattenuated images which is not noted on attenuated corrected images. This could be due to shifting artifact related to arm positioning. TX/NM cardiolite stress test IMPRESSION: 1. Myocardial perfusion imaging study shows possible normal myocardial perfusion. 2. Gated LVEF is 55%. 3. Transient ischemic dilatation not present. EKG revealed negative for ischemia. Electronically signed by: John Floyd MD 02/16/2025 12:46 PM EDT
--- NOTE | 2025-02-15 08:16 | CA_ITS ---
Acquisition Time: 2025-02-15 08:44:02 Total Exercise Time: 00:05:55 Test Indications: PACs,PVC's,Dizziness and Giddiness Medications: see med sheet Protocol: JANELLE Max HR: 137 BPM 94% of Pred: 145 BPM Max BP: 160/86 mmHG Max Work Load: 7.0 METS Exercise stress test with exercise 5 mins 55 secs of Janelle Protocol, achieving 94% MPHR, with reports of abdominal pressure initially that resolved quickly into exercise, with reports of SOB and dizziness, with frequent PACs and PVCs, with normotensive repsonse to exercise. Without any EKG changes meeting criteria for ischemia. In recovery, breathing returned to baseline and dizziness resolved. Nuclear images pending. Test reviewed with Dr. Mayorga. Referred By: Deanna Casper Electronically Signed By: Jeovany Lozano
--- OUTSIDE RECORDS SUMMARY | 2025-02-15 08:29 | XMS_ITS | Clinical Summary ---
Author Organization [facility] Address [address] [place] [address] Phone Care Team Providers Care Rn Referral Name Role Phone Josemanuel Way MD Primary Care Provider [phone] Encounters Date Type Department Care Team Description 02/05/2025 2:05 PM EDT - 02/05/2025 11:59 PM EDT Hospital Encounter [facility] [address] [place] [id number] Vertigo Discharge Disposition: Home or Self Care from Last 3 Months Social History Tobacco Use Types Packs/Day Years [...] - Inhaled Oxygen Concentration - - Weight 95.3 kg (210 lb) 02/05/2025 2:51 PM EDT Height 175.3 cm (5' 9 ) 12/20/2023 2:02 PM EDT Body Mass Index 31.01 12/20/2023 2:02 PM EDT Plan of Treatment Health Maintenance Due Date Last Done Comments DTaP,Tdap,and Td Vaccines (1 - Tdap) 1969 Pneumococcal Vaccine: 50+ Years (1 of 1 - PCV) 09/29/1999 Abdominal Aortic Aneurysm (AAA) Screen 12/12/2023 Cholesterol Screening (Lipid Panel) 12/12/2023 Colorectal Cancer Screening: Colonoscopy 12/12/2023 Falls Risk Assessment 12/12/2023 Hepatitis C Screening 12/12/2023 Medicare Annual Wellness Visit 12/12/2023 03/16/2022 Social Influencers of Health Screening 12/12/2023 Depression Screening 06/14/2024 COVID-19 Vaccine ( season) 2025 04/15/2021, 09/14/2020, 08/24/2020 Influenza Vaccine (#1) 2025 , 05/13/2021, 02/20/2020, Additional history exists Zoster Vaccines Completed 04/26/2023, 04/15/2021 RSV Immunization Adult Patients Completed 07/03/2023 HIB Vaccines Aged Out No longer eligi [...] on patient's age to complete this topic Procedures Procedure Name Priority Date/Time Associated Diagnosis Comments MR BRAIN WO AND W CONTRAST Routine 02/05/2025 4:02 PM EDT Vertigo from Last 3 Months Results * MR Brain wo and w Contrast (02/05/2025 4:02 PM EDT) Anatomical Region Laterality Modality Head and Neck Magnetic Resonan ce 02/07/2025 10:5 9 AM EDT Impressions 02/07/2025 11:02 AM EDT No acute findings or abnormal intracranial enhancement. No mass or abnormal enhancement along the 7th or 8th cranial nerves. -------- FINAL REPORT -------- Dictated By: JANAK SAMUELS Dictated Date: 02/07/2025 10:59 ET Assigned Physician: JANAK SAMUELS Reviewed and Electronically Signed By: JANAK SAMUELS Signed Date: 02/07/2025 11:02 ET Workstation ID: [id number] Transcribed By: Self Edit Transcribed Date: 02/07/2025 10:59 ET Narrative 02/07/2025 11:02 AM EDT PROCEDURE: Brain MRI INDICATION: Vertigo TECHNIQUE: Multiplanar, multisequence MRI of the brain without and with contrast. 20 mL Dotarem injected intravenously without complication from a 20 mL vial COMPARISON: No priors available. FINDINGS: No acute infarct, mass effect, or intracranial hemorrhage. Minimal nonspecific T2 hyperintense foci throughout the supratentorial white matter are most likely related to chronic small vessel ischemic change. Mild temporal lobe predominant cerebral volume loss. No hydrocephalus. Sella and foramen magnum are normal. No abnormal intracranial enhancement or susceptibility artifact. No mass or abnormal enhancement seen along the 7th or 8th cranial nerves. Major intracranial arterial flow voids are normal. Sinuses are clear. Trace left mastoid fluid. Inner ear structures are normal and T2 signal. Orbits and extra cranial soft tissues are normal. Calvarium is normal. Procedure Note Janak Samuels MD - 02/07/2025 PROCEDURE: Brain MRI INDICATION: Vertigo TECHNIQUE: Multiplanar, multisequence MRI of the brain without and withcontrast. 20 mL Dotarem injected intravenously without complication froma 20 mL vial COMPARISON: No priors available. FINDINGS: No acute infarct, mass effect, or intracranial hemorrhage. Minimal nonspecific T2 hyperintense foci throughout the supratentorialwhite matter are most likely related to chronic small vessel ischemicchange. Mild temporal lobe predominant cerebral volume loss. No hydrocephalus. Sella and foramen magnum are normal. No abnormal intracranial enhancement or susceptibility artifact. No mass or abnormal enhancement seen along the 7th or 8th cranialnerves. Major intracranial arterial flow voids are normal. Sinuses are clear. Trace left mastoid fluid. Inner ear structures arenormal and T2 signal. Orbits and extra cranial soft tissues are normal. Calvarium is normal. IMPRESSION: No acute findings or abnormal intracranial enhancement. No mass or abnormal enhancement along the 7th or 8th cranial nerves. -------- FINAL REPORT -------- Dictated By: JANAK SAMUELS Dictated Date: 02/07/2025 10:59 ET Assigned Physician: JANAK SAMUELS Reviewed and Electronically Signed By: JANAK SAMUELS Signed Date: 02/07/2025 11:02 ET Workstation ID: [id number] Transcribed By: Self Edit Transcribed Date: 02/07/2025 10:59 ET Andres CLEMONS IMG MRI PROCEDURES Final R esult from Last 3 Months Insurance MEDICARE [facility] Care Teams Rn Referral Relationship Specialty Start Date End Date Josemanuel Way MD PCP - General Internal Medicine 05/22/16
--- OUTSIDE RECORDS SUMMARY | 2025-02-15 08:30 | XMS_ITS | Patient Health Record ---
[facility] [address] [address] Address [address] [place] [address] Care Team Providers Care Outsole Molder Name Role Phone KATRIN WAY Primary Care Provider ROSEMARIE BOLDEN Unavailable [phone] DANIEL REHMAN Unavailable [phone] SLOANE DE PAZ Unavailable [phone] Allergies No Known Allergies Results Component Value Reference Range Notes MR BRAIN WO AND W CONTRAST Reviewed date:02/07/2025 01:28:08 PM Interpretation: Performing Lab: Notes/Report: Note See Note [facility], a member of [employer] Patient Name: ASHLEY XIONG Date of : 1950 Reason for Exam: Vertigo Exam Date: 02/05/2025 [id number] EST Report Status: Final Ordering Provider: ROSEMARIE BOLDEN PCP: KATRIN WAY PROCEDURE: Brain MRI INDICATION: Vertigo TECHNIQUE: Multiplan ar, multisequence MRI of the brain without and with contrast. 20 mL Dotarem injected intravenously without complication from a 20 mL vial COMPARISON: No prior s available. FINDINGS: No acute infarct, ma ss effect, or intracranial hemorrhage. Minimal nonspecific T2 hyperintense foci throughout the supratentorial white matter are most likely related to chronic small vessel ischemic change. Mild temporal lobe predominant cerebral volume loss. No hydrocephalus. Sella and foramen ma gnum are normal. No abnormal intracra nial enhancement or susceptibility artifact. No mass or abnormal enhancement seen along the 7th or 8th cranial nerves. Major intracranial arterial flow voids are normal. Sinuses are clear. T race left mastoid fluid. Inner ear structures are normal and T2 signal. Orbits and extra crane mechanic nial soft tissues are normal. Calvarium is normal. IMPRESSION: No acute findings or abnormal intracranial enhancement. No mass or abnormal enhancement along the 7th or 8th cranial nerves. -------- FINAL REPOR T -------- Dictated By: JANAK SAMUELS Dictated Date: 02/07 10:59 ET Assigned Physician: JANAK SAMUELS Reviewed and Electronically Signed By: JANAK SAMUELS Signed Date: 025 11:02 ET Workstation ID: [id number] Transcribed By: Self Edit Transcribed Date: 02/07/2025 10:59 ET Comp. Metabolic Panel (14)-3 Reviewed date:10/18/2024 10:08:37 AM Interpretation: Performing Lab:[facility], [address] [place], [place], Phone - [phone], Director - [place] Notes/Report: Glucose 115 70-99 [...] IU/L ALT (SGPT) 18 0-44 IU/L Lipid Panel-[id number] Reviewed date:10/18/2024 10:05:27 AM Interpretation: Performing Lab:[facility], [address], [place], Phone - [phone], Director - [place] Notes/Report: Cholesterol, Total 209 100-199 mg/dL Triglycerides 239 0-149 mg/dL HDL Cholesterol 45 >39 mg/dL VLDL Cholesterol Yusef 42 5-40 mg/dL LDL Chol Calc (NIH) 122 0-99 mg/dL CBC With Differential/Platel et-[id number] Reviewed date:10/18/2024 02:08:32 PM Interpretation: Performing Lab:[facility], [address], [place], Phone - [phone], Director - [place] Notes/Report: WBC 5.9 3.4-10.8 [...] 0.0 0.0-0.1 x10E3/uL Reason For Referral Reason Vestibular Therapy Evaluate & Treat Diagnosis 1 Vertigo (R42) Referral Organization [facility] Referring Provider First Name ROSEMARIE Referring Provider Last Name KIMI Referring Provider Speciality Internal M edicine Referred Provider Specialty Physical The rapist General Notes Chely Sorenson 0 01/30/2025 02:29:29 PM > Referral to [facility] and faxed, p. [phone], f. [phone] Referral Priority Routine Medications Medication SIG (Take, Route, Frequency, Duration) Notes Start Date End Date Status Ezetimibe 10 MG TAKE 1 TABLET BY FERNANDEZ TH EVERY DAY FOR 30 DAYS; Duration: 90 Active Metoprolol Succinate 25 MG 1 capsule Ora lly Once a day; Duration: 30 day(s) 01/30/2025 Active Pantoprazole Sodium 40 MG TAKE 1 TABLET BY MOUTH EVERY DAY; Duration: 90 Active Rosuvastatin Calcium 20 MG TAKE 1 TABLET BY MOUTH EVERY DAY; Duration: 90 Active Multi For Him - Orally Acti ve Sertraline HCl 50 MG TAKE 1 TABLET BY [facility] EVERY DAY; Duration: 90 Active Immunizations Vaccine Route Administration Date Status Comme nts Flu vaccine no Preserv 3 and > IM Intramuscular 04/06/2018 Administered Flu vaccine no Preserv 3 and > IM Intramuscular 03/22/2024 Administered influenza IM Intramuscular 05/13/2021 Administered Influenza, high dose seasonal IM Intramuscular 02/14/2019 Administered [facility] Social History Tobacco Use: Social History Observation Description Date Details (start date - stop date) Never Smoker NA - NA Tobacco Use/Smoking Question Answer Notes Are you a nonsmoker Problems Problem Type SNOMED Code ICD Code Onset Dates Problem Status W/U Status Risk Notes Problem Obesity (402660850) Other obesit y (E66.8) Active confirmed Problem Mixed hyperlipidemia (450914148) Mixed hyperlipidemia (E78.2) Active confirmed Problem Hyperlipidemia (65871680) Hyperlipidemia, unspecified (E78.5) Active confirmed Problem Essential hypertension (09701817) Essential (primary) hypertension (I10) Active confirmed Problem Gastro-esophageal reflux disease with esophagitis (071736353) Gastro-esophageal reflux disease with esophagitis (K21.0) Active confirmed Problem Impaired fasting glucose (742815761) Impaired fasting glucose (R73.01) Active confirmed Problem Nonvenomous insect bite of trunk without infection (92120268) Insect bite (nonvenomous) of abdominal wall, initial encounter (S30.217S) Active confirmed Problem Body mass index 30.00 to 34.99 (747208592789156) Body mass index (BMI) 31.0-31.9, adult (Z68.31) Active confirmed Problem Essential hypertension (94028448) Essential hypertension (I10) Active confirmed Problem Colon cancer screening (209192776) Colon cancer screening (Z12.11) Active confirmed Problem Pain of left knee region (finding) (876078592128664) Left knee pain, unspecified chronicity (M25.562) Active confirmed Problem Hyperlipidaemia (60529155) Hyperlipidemia, unspecified hyperlipidemia type (E78.5) Active confirmed Problem Anxiety (47106293) Anxiety (F41.9) Active confi rmed Problem Adult health examination (291665385) Adult general medical exam (Z00.00) Active confirmed Problem Dizziness (242332487) Dizziness (R42) Active confirmed Problem Fatigue (04483306) Fatigue, unspecified type (R53.83) Active confirmed Problem Rash (201107714) Rash (R21) Active confirmed Problem Annual health maintenance examination (46319837) Annual physical exam (Z00.00) Active confirmed Problem Gastroesophageal reflux disease without esophagitis (904290815) Gastroesophageal reflux disease without esophagitis (K21.9) Active confirmed Problem Obesity (383563837) Obesity (BMI 30-39.9) (E66.9) Active confirmed Problem Gastroesophageal reflux disease with esophagitis (disorder) (272283186) Gastroesophageal reflux disease with esophagitis, unspecified whether hemorrhage (K21.00) Active confirmed Problem Bite of tick (event) (256302403) Tick bite, unspecified site, initial encounter (W57.XXXA) Active confirmed Problem Frequent headache (finding) (404780400) Frequent headaches (R51.9) Active confirmed Problem Double vision (00449699) Double vision (H53.2) Active confirmed Problem Gastroesophageal reflux disease (541729004) GERD (gastroesophageal reflux disease) (K21.9) Active confirmed Problem Hyperlipidemia (13498918) Hyperlipidemia (E78.5) Active confirmed Vital Signs Heart Rate 83 /min 01/30/2025 Oximetry 97 % 01/30/2025 Blood pressure diastolic 84 mm Hg 01/30/2025 Height 68 in 01/30/2025 Blood pressure systolic 122 mm Hg 01/30/2025 Weight 215.1 lbs 01/30/2025 BMI 32.7 kg/m2 01/30/2025 Encounters Encounter Location Date Provider Diagnosis [facility] [address] [place] [address] 03/31/[address] Impacted cerumen of both ears H61.23 [facility] [address] [facility] [address] [address] 04/27/2024 SLOANE ZANDRA [facility] [address] [place] [address] 03/22/[address] Essential hypertensi on I10 ; Anxiety F41.9 ; GERD (gastroesophageal reflux disease) K21.9 ; Hyperlipidemia E78.5 ; Encounter for immunization Z23 ; Dizziness R42 and Cerumen debris on tympanic membrane of both ears H61.23 [facility] [address] [place] [address] 04/13/2024 SLOANE DE PAZ Labile hypertension R09.89 ; Hyperlipidemia E78.5 ; GERD (gastroesophageal reflux disease) K21.9 ; Obesity (BMI 30-39.9) E66.9 and Anxiety F41.[address] [facility] [address] [place], [place] 05/03/2024 DANIEL BELINDA SARS-CoV-2 positive U07.[address] [facility] [address] [place], [place] 06/26/[address] Annual physical exam Z00.00 ; Hyperlipidemia, unspecified hyperlipidemia type E78.5 and Essential (primary) hypertension I10 [facility] [address] [place], [place] 10/24/2024 DANIEL REHMAN Mixed hyperlipidemia E78.2 ; Grief reaction F43.20 ; Gastroesophageal reflux disease without esophagitis K21.9 ; Elevated glucose R73.09 ; Obesity (BMI 30-39.9) E66.9 ; Essential hypertension I10 ; Dizziness R42 and Encounter for examination of blood pressure without abnormal findings Z01.[address] [facility] [address] [place], [place] 01/30/2025 ROSEMARIE BOLDEN Vertigo R42 ; Essent ial hypertension I10 ; Mixed hyperlipidemia E78.2 ; Lid lag H02.539 and Encounter for examination of blood pressure without abnormal findings Z01.[address] [facility] [address] [place], [place] 04/12/[address] [facility] [address] [place], [place] 05/03/[address] [facility] [address] [place] [address] 05/03/2024 SLOANE DE PAZ [facility] [address] [place] [address] 05/15/2024 SLOANE DE PAZ [facility] [address] [place] [address] 06/08/2024 SLOANE DE PAZ [facility] [address] [place] [address] 12/19/2024 DANIEL REHMAN Assessments Encounter Date Diagnosis (ICD Code) Assessment Notes Treatment Notes Treatment Clinical Notes Section Notes 03/22/2024 Essential hypertension (ICD-10 - I10) #HLD [...] and in 3 months for a MWV. 03/31/2024 Impacted cerumen of both ears (ICD-10 [...] or weakness. Of note recently seen by [facility] cardiology on 02/15/2024 for symptoms of dizziness [...] this time of increased stress including his algyvj-cr-cew who is staying at the house to [...] Dictation was accomplished with the use of [employer] voice recognition software, which is prone to [...] or weakness. Of note recently seen by [facility] cardiology on 02/15/2024 for symptoms of dizziness [...] this time of increased stress including his bobrok-gs-sbx who is staying at the house to [...] Dictation was accomplished with the use of [employer] voice recognition software, which is prone to [...] of breath or trouble breathing. Has tried xsko-nae-dabrofm NyQuil which has improved symptoms slightly. Patient [...] patient. I used the following telehealth technology (telephone/[employer]/ Net[employer]) during this visit This encounter is appropriate [...] Dictation was accomplished with the use of [employer] voice recognition software, prone to medical misidentifications [...] log exercise and discussed fitness Apps like [employer] which can help keep log off calories [...] He regularly walks with his dog in [place] in [place]. 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 Overall doing fairly well, sleeping well at [...] his dog 2-3 times a day at [place]. 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 Overall doing fairly well, sleeping well at [...] his dog 2-3 times a day at [place]. States he has been limiting processed food [...] Dictation was accomplished with the use of [employer] voice recognition software, prone to medical misidentifications and grammatical errors. This is unintentional and the practitioner does try to identify and correct these, but some could still be present. Please do not hesitate to contact practitioner for clarification. 01/30/2025 Essential hypertension (ICD-10 - I10) Ashley is a pleasant 74-year-old male who presents the office for an urgent care visit. # Dizziness: History of following with vestibular therapy, will refer. States its mostly positional. Is following with cardiology, had multiple Holter monitors showing ventricular ectopy increase from 4% to 8.3%. Echocardiogram March 2024 with an ejection fraction 55 to 60% with mild aortic regurgitation, and mitral regurgitation. Scheduled for nuclear stress test in February to evaluate for ischemia. Encouraged decreasing caffeine, improving hydration, limiting salt. Patient was started on metoprolol 25 mg once daily following with purchasing agent nurse practitioner Deanna Samaniego, # Blood pressure and heart rate stable. Continue metoprolol 25 mg once daily # Rosuvastatin 20 mg, ezetimibe 10 mg. Patient admits to more body aches since starting these medications. Trial co-Q10 and magnesium glycinate. If no improvement consider Livalo. # Patient admits to a right lid lag, not noted on examination. Discussed following with ophthalmology. Discussed emergency department criteria/criteria to call the office # Longstanding history of vertigo. Will order MRI of the brain with and without contrast to evaluate. Also encouraged to follow with vestibular therapy, and continuing with cardiac workup. Discussed emergency department criteria/criteria to call the office. Follow with Daniel Rehman PA-C March 05, 2025 with labs, sooner as needed. Follow with ophthalmology, cardiology, vestibular therapy in the meantime and obtain MRI. All quetsions answered to patients satisfaction. Patient verbalized understanding of diagnosis and treatments explained. To call sooner prior to next visit it any questions/concerns arise. Case discussed with collaborating physician Dg Way who reviewed the assessment and plan. Chart, medications, labs, vital signs reviewed. Dictation was accomplished with the use of [employer] voice recognition software, prone to medical misidentifications and grammatical errors. This is unintentional and the practitioner does try to identify and correct these, but some could still be present. Please do not hesitate to contact practitioner for clarification. 01/30/2025 Vertigo (ICD-10 - R42) Ashley is a pleasant 74-year-old male who presents the office for an urgent care visit. # Dizziness: History of following with vestibular therapy, will refer. States its mostly positional. Is following with cardiology, had multiple Holter monitors showing ventricular ectopy increase from 4% to 8.3%. Echocardiogram March 2024 with an ejection fraction 55 to 60% with mild aortic regurgitation, and mitral regurgitation. Scheduled for nuclear stress test in February to evaluate for ischemia. Encouraged decreasing caffeine, improving hydration, limiting salt. Patient was started on metoprolol 25 mg once daily following with purchasing agent nurse practitioner Deanna Samaniego, # Blood pressure and heart rate stable. Continue metoprolol 25 mg once daily # Rosuvastatin 20 mg, ezetimibe 10 mg. Patient admits to more body aches since starting these medications. Trial co-Q10 and magnesium glycinate. If no improvement consider Livalo. # Patient admits to a right lid lag, not noted on examination. Discussed following with ophthalmology. Discussed emergency department criteria/criteria to call the office # Longstanding history of vertigo. Will order MRI of the brain with and without contrast to evaluate. Also encouraged to follow with vestibular therapy, and continuing with cardiac workup. Discussed emergency department criteria/criteria to call the office. Follow with Daniel Rehman PA-C March 05, 2025 with labs, sooner as needed. Follow with ophthalmology, cardiology, vestibular therapy in the meantime and obtain MRI. All quetsions answered to patients satisfaction. Patient verbalized understanding of diagnosis and treatments explained. To call sooner prior to next visit it any questions/concerns arise. Case discussed with collaborating physician Dg Way who reviewed the assessment and plan. Chart, medications, labs, vital signs reviewed. Dictation was accomplished with the use of [employer] voice recognition software, prone to medical misidentifications and grammatical errors. This is unintentional and the practitioner does try to identify and correct these, but some could still be present. Please do not hesitate to contact practitioner for clarification. 01/30/2025 Mixed hyperlipidemia (ICD-10 - E78.2) Ashley is a pleasant 74-year-old male who presents the office for an urgent care visit. # Dizziness: History of following with vestibular therapy, will refer. States its mostly positional. Is following with cardiology, had multiple Holter monitors showing ventricular ectopy increase from 4% to 8.3%. Echocardiogram March 2024 with an ejection fraction 55 to 60% with mild aortic regurgitation, and mitral regurgitation. Scheduled for nuclear stress test in February to evaluate for ischemia. Encouraged decreasing caffeine, improving hydration, limiting salt. Patient was started on metoprolol 25 mg once daily following with purchasing agent nurse practitioner Deanna Samaniego, # Blood pressure and heart rate stable. Continue metoprolol 25 mg once daily # Rosuvastatin 20 mg, ezetimibe 10 mg. Patient admits to more body aches since starting these medications. Trial co-Q10 and magnesium glycinate. If no improvement consider Livalo. # Patient admits to a right lid lag, not noted on examination. Discussed following with ophthalmology. Discussed emergency department criteria/criteria to call the office # Longstanding history of vertigo. Will order MRI of the brain with and without contrast to evaluate. Also encouraged to follow with vestibular therapy, and continuing with cardiac workup. Discussed emergency department criteria/criteria to call the office. Follow with Daniel Rehman PA-C March 05, 2025 with labs, sooner as needed. Follow with ophthalmology, cardiology, vestibular therapy in the meantime and obtain MRI. All quetsions answered to patients satisfaction. Patient verbalized understanding of diagnosis and treatments explained. To call sooner prior to next visit it any questions/concerns arise. Case discussed with collaborating physician Dg Way who reviewed the assessment and plan. Chart, medications, labs, vital signs reviewed. 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 Overall doing fairly well, sleeping well at [...] his dog 2-3 times a day at [place]. States he has been limiting processed food [...] Dictation was accomplished with the use of [employer] voice recognition software, prone to medical misidentifications [...] log exercise and discussed fitness Apps like [employer] which can help keep log off calories [...] He regularly walks with his dog in [place] in [place]. Continue to be a resource as needed [...] or weakness. Of note recently seen by [facility] cardiology on 02/15/2024 for symptoms of dizziness [...] this time of increased stress including his remkzp-dr-maf who is staying at the house to [...] Dictation was accomplished with the use of [employer] voice recognition software, which is prone to [...] in 3 months for a MWV. 03/22/2024 GERD (gastroesophageal reflux disease) (ICD-10 - [...] or weakness. Of note recently seen by [facility] cardiology on 02/15/2024 for symptoms of dizziness [...] this time of increased stress including his fuqkyr-ug-yva who is staying at the house to [...] Dictation was accomplished with the use of [employer] voice recognition software, which is prone to [...] log exercise and discussed fitness Apps like [employer] which can help keep log off calories [...] He regularly walks with his dog in [place] in [place]. Continue to be a resource as needed and continue to be active. Episodes of dizziness are still there but has had a complete cardiac workup. Take fall precautions and follow-up advised along with hydration 01/30/2025 Lid lag (ICD-10 - H02.539) Ashley is a pleasant 74-year-old male who presents the office for an urgent care visit. # Dizziness: History of following with vestibular therapy, will refer. States its mostly positional. Is following with cardiology, had multiple Holter monitors showing ventricular ectopy increase from 4% to 8.3%. Echocardiogram March 2024 with an ejection fraction 55 to 60% with mild aortic regurgitation, and mitral regurgitation. Scheduled for nuclear stress test in February to evaluate for ischemia. Encouraged decreasing caffeine, improving hydration, limiting salt. Patient was started on metoprolol 25 mg once daily following with purchasing agent nurse practitioner Deanna Samaniego, # Blood pressure and heart rate stable. Continue metoprolol 25 mg once daily # Rosuvastatin 20 mg, ezetimibe 10 mg. Patient admits to more body aches since starting these medications. Trial co-Q10 and magnesium glycinate. If no improvement consider Livalo. # Patient admits to a right lid lag, not noted on examination. Discussed following with ophthalmology. Discussed emergency department criteria/criteria to call the office # Longstanding history of vertigo. Will order MRI of the brain with and without contrast to evaluate. Also encouraged to follow with vestibular therapy, and continuing with cardiac workup. Discussed emergency department criteria/criteria to call the office. Follow with Daniel Rehman PA-C March 05, 2025 with labs, sooner as needed. Follow with ophthalmology, cardiology, vestibular therapy in the meantime and obtain MRI. All quetsions answered to patients satisfaction. Patient verbalized understanding of diagnosis and treatments explained. To call sooner prior to next visit it any questions/concerns arise. Case discussed with collaborating physician Dg Way who reviewed the assessment and plan. Chart, medications, labs, vital signs reviewed. Dictation was accomplished with the use of [employer] voice recognition software, prone to medical misidentifications and grammatical errors. This is unintentional and the practitioner does try to identify and correct these, but some could still be present. Please do not hesitate to contact practitioner for clarification. 10/24/2024 Elevated glucose (ICD-10 - R73.09) Ashley is a pleasant 74-year-old male present today for follow-up. #Grief: Patient unfortunately lost his approximately 5 months ago after being on hospice x 4 months. Patient has a dog named Deion at home as a stock patch sawyer. Overall doing fairly well, sleeping well at [...] his dog 2-3 times a day at [place]. 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 Overall doing fairly well, sleeping well at [...] his dog 2-3 times a day at [place]. States he has been limiting processed food [...] Dictation was accomplished with the use of [employer] voice recognition software, prone to medical misidentifications and grammatical errors. This is unintentional and the practitioner does try to identify and correct these, but some could still be present. Please do not hesitate to contact practitioner for clarification. 01/30/2025 Encounter for examination of blood pressure without abnormal findings (ICD-10 - Z01.30) Ashley is a pleasant 74-year-old male who presents the office for an urgent care visit. # Dizziness: History of following with vestibular therapy, will refer. States its mostly positional. Is following with cardiology, had multiple Holter monitors showing ventricular ectopy increase from 4% to 8.3%. Echocardiogram March 2024 with an ejection fraction 55 to 60% with mild aortic regurgitation, and mitral regurgitation. Scheduled for nuclear stress test in February to evaluate for ischemia. Encouraged decreasing caffeine, improving hydration, limiting salt. Patient was started on metoprolol 25 mg once daily following with purchasing agent nurse practitioner Deanna Samaniego, # Blood pressure and heart rate stable. Continue metoprolol 25 mg once daily # Rosuvastatin 20 mg, ezetimibe 10 mg. Patient admits to more body aches since starting these medications. Trial co-Q10 and magnesium glycinate. If no improvement consider Livalo. # Patient admits to a right lid lag, not noted on examination. Discussed following with ophthalmology. Discussed emergency department criteria/criteria to call the office # Longstanding history of vertigo. Will order MRI of the brain with and without contrast to evaluate. Also encouraged to follow with vestibular therapy, and continuing with cardiac workup. Discussed emergency department criteria/criteria to call the office. Follow with Daniel Rehman PA-C March 05, 2025 with labs, sooner as needed. Follow with ophthalmology, cardiology, vestibular therapy in the meantime and obtain MRI. All quetsions answered to patients satisfaction. Patient verbalized understanding of diagnosis and treatments explained. To call sooner prior to next visit it any questions/concerns arise. Case discussed with collaborating physician Dg Way who reviewed the assessment and plan. Chart, medications, labs, vital signs reviewed. Dictation was accomplished with the use of [employer] voice recognition software, prone to medical misidentifications [...] in 3 months for a MWV. 04/13/2024 Anxiety (ICD-10 - F41.9) Ashley is [...] or weakness. Of note recently seen by [facility] cardiology on 02/15/2024 for symptoms of dizziness [...] this time of increased stress including his [id number] who is staying at the house to [...] Dictation was accomplished with the use of [employer] voice recognition software, which is prone to medical misidentifications and grammatical errors. This are unintentional and the practitioner does try to identify and correct these, but some could still be present. Please do not hesitate to contact practitioner for clarification. 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 Overall doing fairly well, sleeping well at [...] his dog 2-3 times a day at [place]. 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 Overall doing fairly well, sleeping well at [...] his dog 2-3 times a day at [place]. 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 Overall doing fairly well, sleeping well at [...] his dog 2-3 times a day at [place]. States he has been limiting processed food [...] Dictation was accomplished with the use of [employer] voice recognition software, prone to medical misidentifications [...] MRI : Brain with and without contrast MRI : Brain with and without contrast EKG 10/06/2017 CBC (COMPLETE BLOOD COUNT) 10/06/2017 CBC (COMPLETE BLOOD COUNT) 07/13/2019 CBC (COMPLETE BLOOD COUNT) 05/08/2020 CBC (COMPLETE BLOOD COUNT) 11/25/2020 CBC (COMPLETE BLOOD COUNT) WITH DIFF COMPREHENSIVE METABOLIC PANEL 05/13/2023 COMPREHENSIVE METABOLIC PANEL 11/25/2020 COMPREHENSIVE METABOLIC PANEL 07/13/2019 COMPREHENSIVE METABOLIC PANEL 10/06/2017 HEMOGLOBIN A1C 10/06/2017 HEMOGLOBIN A1C 05/08/2020 LIPID PANEL 05/08/2020 LIPID PANEL 04/06/2018 LIPID PANEL 07/13/2019 LIPID PANEL 10/06/2017 LIPID PANEL 11/25/2020 LIPID PANEL 05/13/2023 MERCURY 04/06/2018 PSA, SCREEN 10/06/2017 URINALYSIS, COMPLETE 07/13/2019 URINALYSIS, COMPLETE 05/08/2020 URINE MICROSCOPIC 10/06/2017 Cologuard 05/13/2021 LIPID PANEL, STANDARD 06/26/2024 LIPID PANEL, STANDARD 10/24/2024 COMPREHENSIVE METABOLIC PANEL 10/24/2024 COMPREHENSIVE METABOLIC PANEL 06/26/2024 COMPREHENSIVE METABOLIC PANEL 12/28/2023 CBC (INCLUDES DIFF/PLT) 12/28/2023 CBC (INCLUDES DIFF/PLT) 06/26/2024 CBC (INCLUDES DIFF/PLT) 10/24/2024 URINALYSIS, COMPLETE 10/24/2024 HEMOGLOBIN A1c 10/24/2024 VITAMIN B12/FOLATE, SERUM PANEL 12/28/19 24 LEAD, VENOUS, BLOOD 04/06/2018 COMPLETE URINALYSIS 11/25/2020 Knee 3 Views Left 10/26/2023 LYME AB SCREEN 12/28/2023 Next Appt Details Provider Name:DANIEL REHMAN, 03/05/2025 09:00:00 AM, [address], [place], [address], Insurance Providers Payer Name Payer Address Payer Phone Subscriber Number Group Number Insured Name Patient Relationship to Insured Coverage Start Date Coverage End Date Medicare Part B [id number] [address] [place] [address] [id number] ASHLEY XIONG Self - patient is the insured 5 [facility] [address] [place] [phone] [id number] ASHLEY XIONG Self - patient is the insured Medical (General) History Medical History History ICD Code anxiety esophageal reflux hyperglycemia Colonoscopy 13 years Surgical History Surgery Date(Month/Year) Knee Arthroscopy Laminectomy with disc removal Neck Surgery
== END ==
LOC: HO.CARD 08:12
PROVIDERS: PCP Internal Medicine; Visit Provider Nurse Practitioner Family
DX: I49.3 Ventricular premature depolarization (principal); I49.1 Atrial premature depolarization; R42 Dizziness and giddiness
CPT/HCPCS: 78452; 93017; A9500

== ENCOUNTER → 2025-02-15 08:16 | Outpatient (BNV) | payer MEDICARE, OTHER, SELFPAY | PROVIDERS: PCP Internal Medicine | DX: I49.1 Atrial premature depolarization (principal); I49.3 Ventricular premature depolarization; R06.02 Shortness of breath; R42 Dizziness and giddiness | CPT/HCPCS: 78452; 93016; 93018 ==

== ENCOUNTER 2025-04-05 14:37 | Outpatient (AMB) | payer MEDICARE, OTHER, SELFPAY ==
--- OUTSIDE RECORDS SUMMARY | 2024-03-14 12:34 | XMS_ITS | Encounter Summary ---
Author Organization [facility] Address [address] [place] [address] Care Team Providers Care Animal Humane Agent Supervisor Name Role Phone Katrin Way MD Primary Care Provider [phone] Encounter Details Date Type Department Care Team (Late st Contact Info) Description 03/14/2024 12:34 PM EDT Hospital Encounter TH HISTORIC ENCOUNTERS EASTERN CONVERSION ONLY Benjy Hendrickson MD [facility] [place] [phone] Social History Tobacco Use Types Packs/Day Years [...] connected to continuous noninvasive EKG monitoring. The [facility] finger blood pressure monitor was used for [...] on filedocumented in this encounter Care Teams Animal Humane Agent Supervisor Relationship Specialty Start Date End Date Katrin Way MD PCP - General Internal Medicine 05/22/16 documented as of this encounter
--- NOTE | 2025-04-05 14:55 | MHC.OFFVIS ---
Vital Signs 04/05/25 14:57 Height 5 ft 8 in Weight 215 lb 2.738 oz BMI 32.7 BP 130/72 Blood Pressure Location Lt brachial Position Sitting Pulse 69 Pulse Source Monitor Intake Visit Reasons: 3 mth f/up Screen Making Technician Required: No Allergies No Known Allergies Allergy (Verified 04/05/25 15:00) Medication List - Last Reconciled 04/05/25 by Deanna Casper, [employer]-C pantoprazole 40 mg PO DAILY rosuvastatin 20 mg PO DAILY rosuvastatin 20 mg PO DAILY sertraline 50 mg PO DAILY HPI HPI 3 mth f/up: Details: Deacon is a 74-year-old male with past medical history of dizziness/vertigo, PVCs who presents for follow-up after recent Nuclear stress test. Today he reports he has been feeling generally well. He does have issues with dizziness at times. He thought the metoprolol may be adding to it but he stopped metoprolol and his symptom did not improve. He says he had an MRI of the brain which came out okay. He is following with Neurology. His symptom is not progressing. He will feel an occasional heart palpitations, nothing bothersome. He has no chest discomfort brought on by physical activity. He has no shortness of breath, PND, orthopnea or edema. No presyncope, syncope, falls. Has been under stress this past year. Lost his last May and 3 weeks ago lost his dog. [facility] Family History Father Heart attack Social History Alcohol intake: never Patient Tobacco Use Status: Never used Tobacco Review of Systems Const All systems reviewed & are unremarkable except as noted in HPI and below ENT Reports dizziness Card Denies chest pain, Denies chest pain at rest, Denies chest pain with activity, Denies rapid heart rate, Denies pedal edema, Denies edema, Denies leg edema, Denies lightheadedness, Denies palpitations, Denies dyspnea, Denies dyspnea on exertion and Denies orthopnea Resp Denies cough, Denies dyspnea and Denies dyspnea on exertion GI Denies hematochezia and Denies change in stool character Musc Denies abnormal gait, Denies limited range of motion, Denies muscle cramps, Denies muscle weakness, Denies numbness, Denies radiating pain into limb, Denies stiffness and Denies tingling Neuro Denies abnormal gait, Reports dizziness, Denies numbness and Denies tingling Endo Denies palpitations Physical Exam Vital Signs: Last Vital Signs Pulse 69 04/05/25 14:57 BP 130/72 04/05/25 14:57 BMI result Body Mass Index 32.7 Const General: cooperative, healthy appearing, comfortable and no acute distress Orientation/consciousness: patient oriented x3 Neck Neck: Yes normal visual inspection Resp Effort & Inspection: normal respiratory effort Auscultation: clear to auscultation bilaterally, no crackles, no rales, no rhonchi and no wheezes Cardio Rate: regular rate Rhythm: regular rhythm Heart sounds: S1 normal heart sound present, S2 normal heart sound present, no gallops, no murmurs and no rubs Neuro General: patient oriented x3 Extrem General: Yes normal to inspection and No no pedal edema Psych Appearance: grossly normal Mental Status: mental status grossly normal Speech and movement: Normal speech and movement present Office Procedures EKG Details: Today, read by me, sinus rhythm with sinus arrhythmia, rate 69, QTC 422 milliseconds [id number], Complete Assessment & Plan Assessment & Plan (1) Frequent PVCs: Code(s): I49.3 - Ventricular premature depolarization Category: Medical Plan: For his symptom of dizziness he underwent a Holter monitor 05/29/2024 which did show sinus rhythm with frequent ventricular ectopy, 4%. This finding does not contribute to his symptom. An echocardiogram done 03/16/2024 showed EF 55-60%, mild aortic regurgitation and mild mitral regurgitation. A repeat Holter monitor done 12/11/2024 shows sinus rhythm with average heart rate 79 beats per minute, ventricular ectopy 9%, supraventricular ectopy 8.3%. He was put on metoprolol XL 25 mg daily which he took for a month then stopped as he thought it may be adding to his lightheadedness. Nuclear stress test done on 02/15/25 showed frequent PACs and PVCs during exercise with no EKG changes of ischemia and normal myocardial perfusion imaging. Currently reporting an occasional heart palpitation. Will have him restart metoprolol. Discussed reduction in caffeinated beverages and activities for stress reduction. Maintain good hydration. Repeat Holter in 5 months, repeat echocardiogram in 5 months to re-evaluate EF. Cardiology follow-up 6 months, sooner if needed. (2) PAC (premature atrial contraction): Code(s): I49.1 - Atrial premature depolarization Category: Medical Plan: As above (3) Dizziness: Code(s): R42 - Dizziness and giddiness Category: Medical Plan: Reports of dizziness. Has seen Neurology and was told he has vertigo. Plan Time spent on chart review, documentation, interview and assessment Orders: Orders CA echo transthoracic complete 5 Months I49.1 - Atrial premature depolarization, I49.3 - Ventricular premature depolarization ECG 3 day holter monitor 5 Months I49.1 - Atrial premature depolarization, I49.3 - Ventricular premature depolarization Medications: New metoprolol succinate ER restarting 25 mg PO DAILY 90 tabs 3RF Coding Level of Care Code Est Pt Level 4 (67694) Complex EM visit Add On G2211 Diagnoses Frequent PVCs I49.3 PAC (premature atrial contraction) I49.1 Dizziness R42 CPT Codes EKG - CPT: [id number], Complete ([id number]) Time Spent (min) 28
[2025-04-05 14:57] VITALS: BP 130/72; PULSE 69; BMI 32.7
--- OUTSIDE RECORDS SUMMARY | 2025-04-05 18:28 | XMS_ITS | Clinical Summary ---
Author Organization [facility] Address [address] [place] [address] Phone Care Team Providers Care Stores Assistant Name Role Phone Josemanuel Way MD Primary Care Provider [phone] Encounters Date Type Department Care Team Description 02/05/2025 2:05 PM EDT - 02/05/2025 11:59 PM EDT Hospital Encounter [facility] MRI [address] [place] [id number] Vertigo Discharge Disposition: Home or Self Care [...] Health Maintenance Due Date Last Done Comments Colorectal Cancer Screening: Colonoscopy 1950 DTaP,Tdap,and Td Vaccines (1 - Tdap) 1968 Pneumococcal Vaccine: 50+ Years (1 of 1 - PCV) 09/29/1999 Abdominal Aortic Aneurysm (AAA) Screen 12/12/2023 Cholesterol Screening (Lipid Panel) 12/12/2023 Falls Risk Assessment 12/12/2023 Hepatitis C Screening 12/12/2023 Medicare Annual Wellness Visit 12/12/2023 Social Influencers of Health Screening 12/12/2023 Depression [...] Signed Date: 02/07/2025 11:02 ET Workstation ID: [id number] Transcribed By: Self Edit Transcribed Date: 02/07/2025 [...] Signed Date: 02/07/2025 11:02 ET Workstation ID: [id number] Transcribed By: Self Edit Transcribed Date: 02/07/2025 10:59 ET Andres CLEMONS IMG MRI PROCEDURES Final R esult from Last 3 Months Insurance MEDICARE [facility] Care Teams Stores Assistant Relationship Specialty Start Date End Date Josemanuel Way MD PCP - General Internal Medicine 05/22/16
== END 2025-04-05 15:32 | disposition home or self-care (01) ==
LOC: HO.HCS 14:37
PROVIDERS: PCP Internal Medicine; Visit Provider Nurse Practitioner Family
DX: I49.3 Ventricular premature depolarization (principal); I49.1 Atrial premature depolarization; R42 Dizziness and giddiness
CPT/HCPCS: 93010; 99214; G2211

== ENCOUNTER → 2025-04-05 14:37 | Outpatient (BNVA) | payer MEDICARE, OTHER, SELFPAY | PROVIDERS: PCP Internal Medicine; Visit Provider Nurse Practitioner Family | DX: I49.3 Ventricular premature depolarization (principal); I49.1 Atrial premature depolarization; R42 Dizziness and giddiness | CPT/HCPCS: 93005; 99212 ==